=== PATIENT | male | born 1990 | race African-American/Black ===

== ENCOUNTER 2020-01-31 00:31 | Emergency (ER) | payer BC ==
[~2020-01-31] VITALS: Ht 185.4 cm; Wt 188.2 kg
[2020-01-31] MEDS ORDERED: IBUPROFEN 600 MG TAB PO STA (00:34)
[2020-01-31] MEDS ORDERED: IBUPROFEN 600 MG TAB ONE (00:42)
--- NOTE | 2020-01-31 00:43 | Emergency Department Note ---
History of Present Illnes History of Present Illness Chief Complaint: Extremity Trauma/Pain History of Present Illness This is a 29 year old male presents with left wrist pain that started while lifting a propane tank onto a forklift. states felt a pop in left wrist and has had pain since. . Historian: Patient Arrival Mode: Car Onset (how long ago): hour(s) (1) Location: left wrist Quality: pain Radiation: Reports non-radiation Severity: moderate Onset quality: sudden Duration (how long): hour(s) (1) Timing of current episode: constant Progression: unchanged Chronicity: new Context: Reports trauma/injury (as above) Exacerbating factors: movement Associated symptoms: Reports denies other symptoms Treatments prior to arrival: none Past Medical/Family History Physician Review I have reviewed the patient's past medical and family history. Any updates have been documented here. Past Medical History Recent Fever: No Clinical Suspicion of Infectio: No New/Unexplained Change in Ment: No Past Medical History: Hypertension, Diabetes Past Surgical History: None Social History Smoking Cessation: Never Smoker Alcohol Use: Occasional Any Illegal Drug Use: No Family History Family history of heart diseas: No Other family history htn,dm Review of Systems Review of Systems Constitutional: Reports no symptoms EENTM: Reports no symptoms Cardiovascular: Reports no symptoms Respiratory: Reports no symptoms Gastrointestinal: Reports no symptoms Genitourinary: Reports no symptoms Musculoskeletal: Reports as per HPI Integumentary: Reports no symptoms Neurological: Reports no symptoms Psychological: Reports no symptoms Endocrine: Reports no symptoms Hematological/Lymphatic: Reports no symptoms Physical Exam Related Data Allergies: Coded Allergies: No Known Allergies (Unverified , 01/31/20) Triage Vital Signs Vital Signs Date Time Temp Pulse Resp B/P (MAP) Pulse Ox O2 Delivery O2 Flow Rate FiO2 01/31/20 00:34 97.6 107 20 196/112 97 Room Air Vital signs reviewed: Yes Physical Exam CONSTITUTIONAL Constitutional: Present well-developed, Present well-nourished, Present distressed (mild) HENT HENT: Present normocephalic, Present atraumatic, Present oropharynx clear/moist, Present nose normal HENT L/R: Present left ext ear normal, Present right ext ear normal EYES Eyes: Reports PERRL, Reports conjunctivae normal NECK Neck: Present ROM normal PULMONARY Pulmonary: Present effort normal, Present breath sounds normal CARDIOVASCULAR Cardiovascular: Present regular rhythm, Present heart sounds normal, Present capillary refill normal, Present normal rate GASTROINTESTINAL Abdominal: Present soft, Present nontender, Present bowel sounds normal GENITOURINARY Genitourinary: Present exam deferred SKIN Skin: Present warm, Present dry MUSCULOSKELETAL pain in left wrist in located in anatomical snuff box with tenderness to palpation, pain with rom and pain with flexion of thumb against resistance tendons intact, pulses intact. NEUROLOGICAL Neurological: Present alert, Present oriented x 3, Present no gross motor or sensory deficits PSYCHOLOGICAL Psychological: Present mood/affect normal, Present judgement normal Results Imaging Imaging results reviewed: Yes Impressions X-ray left wrist 3 views HISTORY: Pain. [place] pop while lifting. Snuff box tenderness. COMPARISON: None available. FINDINGS: Bones: No acute displaced fracture. Osseous alignment is within normal limits. Joints: The joint spaces are well-maintained. Soft tissues: The soft tissues appear unremarkable. IMPRESSION: No acute fracture identified. Given history of snuff box tenderness, consider immobilization and repeat x-rays in 7-10 days to reassess. Signed by: Tato Gandhi MD on 01/31/2020 1:29 AM Assessment & Plan Medical Decision Making MDM left wrist pain, also pt's blood pressure elevated clonidine 0.1 mg po ordered motrin 600 mg po ordered xray left wrist ordered to eval for fracture. even though xray does not reveal any fractures, due to pain in anatomical snuff box pt placed in velcro thumb spica pt informed to follow up with workers comp physician in the morning Assessment & Plan Final Impression: (1) Left wrist sprain (2) HTN (hypertension) Depart Disposition: HOME, SELF-CARE Last Vital Signs Date Time Temp Pulse Resp B/P (MAP) Pulse Ox O2 Delivery O2 Flow Rate FiO2 01/31/20 00:34 97.6 107 20 196/112 97 Room Air Medications in the ED Ibuprofen 600 mg ONCE STAT PO Last administered on 01/31/20at 00:37; Admin Dose 600 MG; Start 01/31/20 at 00:34; Stop 01/31/20 at 00:35; Status UNV Ibuprofen 600 mg STK-MED ONCE .ROUTE ; Start 01/31/20 at 00:42; Stop 01/31/20 at 00:35; Status ZAYDA DONOVAN MD Jan 31, 2020 00:43
--- NOTE | 2020-01-31 00:57 | NUR ---
RADIOLOGY AT BEDSIDE FOR XRAY.
[2020-01-31] MEDS ORDERED: CLONIDINE HCL 0.1 MG TAB PO ONE (01:15)
--- OUTSIDE RECORDS SUMMARY | 2020-01-31 01:18 | XMS REPORT | Clinical Summary ---
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 Last Filed Vital Signs Not on file Plan of Treatment Health Maintenance Due Date Last Done Comments INFLUENZA VACCINE 01/25/2020 Implants Device Identifier Shelf Expiration Date Model / Serial / L ot Implanted Type Area Manufactur er 09/23/2018 [id number] / / [id number] Particle Soft-Tissue Grft Surgical N/A: N/A [employer] Micronized For Impntn Recon 1000mg Implants; - [id number] Expanders; Implanted: 01/06/2017 at [facility] (Quantity not on file) Surgical Wires 10/23/2018 [id number] / / [id number] Particle Soft-Tissue Grft Surgical N/A: N/A [employer] Micronized For Impntn Recon 1000mg Implants; - [id number] Expanders; Implanted: 01/06/2017 at [facility] (Quantity not on file) Surgical Wires 10/23/2018 [id number] / / [id number] Matrix Matristem 7x10cm Burn Strl - Surgical N/A: N/A [employer] [id number] Implants; Implanted: 01/06/2017 at [facility] (Quantity not on file) Extenders; Surgical Wires 04/25/2018 [id number] / / [id number] Matrix Matristem [id number] Burn Strl Surgical N/A: N/A [employer] - [id number] Implants; Implanted: 01/06/2017 at [facility] (Quantity not on file) Extenders; Surgical Wires Results Not on fileafter 01/30/2019 Advance Directives For more information, please contact: [phone] Patient Arabic Translator Explanation Type Date Recorded Advance Directives, 07/05/2017 7:24 PM Living Will and Medical Power of Lye Treater Date Inactivated Comments Code Status Date Activated 01/07/2017 7:08 PM Full Code 01/04/2017 10:52 AM Code Status decision reached by: Patient
--- OUTSIDE RECORDS SUMMARY | 2020-01-31 01:19 | XMS REPORT | Summary of Care ---
Author Author [facility] Organization [facility] Address Unknown Phone Unavailable Encounter LENI Britt(FIN) [id number] Date(s): 01/21/19 - 01/21/19 [facility] [address] [place], [place] [address]- [phone] Encounter Diagnosis Candidiasis of penis (Discharge Diagnosis) - 01/21/19 Discharge Disposition: Home or Self Care Attending Physician: Hanny Valerio MD Vital Signs 1 2 3 Most recent to oldest [Reference Range]: 185.42 cm (01/21/19 12:48 AM) Height 98.4 DegF (01/21/19 12:48 AM) Temperature Oral [96.4-99.1 DegF] 178/110 mmHg *HI* (01/21/19 2:02 AM) 183/112 mmHg *HI* (01/21/19 1:40 AM) 179/110 mmHg *HI* (01/21/19 1:15 AM) Blood Pressure [90-140/60-90 mmHg] 18 BRMIN (01/21/19 2:02 AM) 18 BRMIN (01/21/19 12:48 AM) Respiratory Rate [14-20 BRMIN] 75 bpm (01/21/19 2:02 AM) 77 bpm (01/21/19 12:48 AM) Peripheral Pulse Rate [60-100 bpm] 195.568 kg (01/21/19 12:48 AM) Weight 56.88 m2 (01/21/19 12:48 AM) Body Mass Index Problem List No data available for this section Allergies, Adverse Reactions, Alerts No Known Allergies Medications clotrimazole topical 1% cream 1 appl, TOP, BID, apply to affected area for 2 to 4 weeks, X 7 day, # 15 gm, 0 R efill(s) Start Date: 01/21/19 Stop Date: 01/28/19 Status: Ordered Diflucan 200 mg, Route: PO, ONCE, Dosing Weight 195.568, kg, Start date: 01/21/19 2:03:00 CDT, Stop date: 01/21/19 2:03:00 CDT, ABX Indication: Genital Tract Infection Start Date: 01/21/19 Stop Date: 01/21/19 Status: Completed Diflucan 100 mg oral tablet 100 mg = 1 tab, PO, Daily, X 7 day, # 7 tab, 0 Refill(s) Start Date: 01/21/19 Stop Date: 01/28/19 Status: Ordered Results Most recent to 1 2 oldest [Reference Range]: UA Bacteria [None Occasional /HPF Seen /HPF] (01/21/19 1:51 AM) UA Bili [Negative] Negative *NA* (01/21/19 1:51 AM) UA Blood [Negative] Negative (01/21/19 1:51 AM) UA Color STRAW *NA* (01/21/19 1:51 AM) UA Glucose [Negative >=1000 mg/dL mg/dL] *ABN* (01/21/19 1:51 AM) UA Ketones Negative [Negative] *NA* (01/21/19 1:51 AM) UA Leuk Est Negative [Negative] (01/21/19 1:51 AM) UA Nitrite Negative [Negative] (01/21/19 1:51 AM) UA pH [5.0-8.0] 6.0 (01/21/19 1:51 AM) UA Protein Negative [Negative] (01/21/19 1:51 AM) UA RBC [0-2 /HPF] 0-2 /HPF (01/21/19 1:51 AM) UA Spec Grav 1.010 [<=1.030] (01/21/19 1:51 AM) UA Sq Epi [Few /LPF] Rare /LPF (01/21/19 1:51 AM) UA Turbidity [Clear] Clear (01/21/19 1:51 AM) UA Urobilinogen 0.2 EU/dL [0.1-1.0 EU/dL] (01/21/19 1:51 AM) UA WBC [None Seen 0-2 /HPF /HPF] (01/21/19 1:51 AM) C trachomatis by Amp Negative Det (APTIMA) *NA* [Negative] (01/21/19 1:51 AM) N gonorrhea by Amp Negative Det (APTIMA) *NA* [Negative] (01/21/19 1:51 AM) Source APTIMA Urine Urine *NA* *NA* (01/21/19 1:51 AM) (01/21/19 1:51 AM) Immunizations No data available for this section Procedures No data available for this section Social History Social History Type Response Smoking Status Never smoker; Exposure to T obacco Smoke None; Cigarette Smoking Last 365 Days No; Reg Smoking Cessation Counseli ng No entered on: 01/21/19 Assessment and Plan No data available for this section
--- OUTSIDE RECORDS SUMMARY | 2020-01-31 01:19 | XMS REPORT | Summary of Care ---
Author Author [facility] Organization [facility] Address Unknown Phone Unavailable Encounter HQ Balwinder(JOVANNA) [id number] Date(s): 08/29/19 - 08/29/19 [facility] [address], [place], [place] [address]- [phone] Encounter Diagnosis Acute conjunctivitis, right eye (Discharge Diagnosis) - 08/29/19 Acute conjunctivitis, right eye (Discharge Diagnosis) - 08/29/19 Discharge Disposition: Home or Self Care Attending Physician: Rosendo Diaz MD Vital Signs Most recent to 1 2 oldest [Reference Range]: Height 185.42 cm (08/29/19 1:16 PM) Temperature Oral 97.3 DegF 97.6 DegF [96.4-99.1 DegF] (08/29/19 1:48 PM) (08/29/19 1:16 PM) Blood Pressure 188/104 mmHg 189/114 mmHg [90-140/60-90 mmHg] *HI* *HI* (08/29/19 1:48 PM) (08/29/19 1:16 PM) Respiratory Rate 18 BRMIN 18 BRMIN [14-20 BRMIN] (08/29/19 1:48 PM) (08/29/19 1:16 PM) Peripheral Pulse 94 bpm 83 bpm Rate [60-100 bpm] (08/29/19 1:48 PM) (08/29/19 1:16 PM) Weight 193.273 kg (08/29/19 1:16 PM) Body Mass Index 56.22 m2 (08/29/19 1:16 PM) Problem List No data available for this section Allergies, Adverse Reactions, Alerts No Known Allergies Medications erythromycin ophthalmic 0.5% ointment 1 appl, RIGHT EYE, QID, X 7 day, # 3 gm, 0 Refill(s) Start Date: 08/29/19 Stop Date: 09/05/19 Status: Ordered fluorescein ophthalmic 1 mg test 1 strip, Route: OPTH, ONCE, Priority: STAT, Start date: 08/29/19 13:25:00 BICYCLE INSPECTOR, S top date: 08/29/19 13:25:00 BICYCLE INSPECTOR Start Date: 08/29/19 Stop Date: 08/29/19 Status: Completed proparacaine ophthalmic 0.5% solution 1 drp, Route: BOTH EYES, ONCE, Drug form: SOLN, Priority: STAT, Start date: 11/12 13:25:00 BICYCLE INSPECTOR, Stop date: 08/29/19 13:25:00 BICYCLE INSPECTOR Start Date: 08/29/19 Stop Date: 08/29/19 Status: Completed Results No data available for this section Immunizations No data available for this section Procedures No data available for this section Social History Social History Type Response Smoking Status Never smoker; Exposure to T obacco Smoke None; Cigarette Smoking Last 365 Days No; Reg Smoking Cessation Counseli ng No entered on: 08/29/19 Assessment and Plan No data available for this section
--- OUTSIDE RECORDS SUMMARY | 2020-01-31 01:19 | XMS REPORT | Continuity of Care Document ---
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 Name Role Phone [employer] Information [employer] Unavailable Un available Problems Problem Status Onset Date Classification Date Reported Comments Source STOMACH PAIN Active 11/25/2019 [facility] PANCREATITIS Active 11/25/2019 [facility] Unspecified acute conjunctivitis, right eye 08/29/2019 08/31/2019 [facility] EYE PAIN Active 08/29/2019 [facility] Candidal balanitis 08/16/2019 08/19/2019 [facility] Localized edema 08/16/2019 08/19/2019 [facility] GENITAL AREA OTHER* Active 08/16/2019 [facility] PENIS RASH Active 01/20/2019 [facility] BILIARY ACUTE PANCREATITIS WITHOUT NECRO Active [facility] BILIARY ACUTE PANCREATITIS WITHOUT NECROSIS OR INFECT Active [facility] st Medications Medication Details Route Status Patient Instructions Ordering Provider Order Date Source sugammadex (ANES) Route: IV, D rug form: SOLN, ONCE, Stop date: 11/28/19 13:54:00 CDT Inactive 11/28/2019 [facility] ondansetron (ANES) Route: IV, Drug form: INJ, ONCE, Stop date: 11/28/19 13:42:00 CDT Inactive 11/28/2019 [facility] ePHEDrine (ANES) Route: IV, Dr buenrostro form: INJ, ONCE, Stop date: 11/28/19 13:26:00 CDT Inactive 11/28/2019 [facility] glycopyrrolate (ANES) Route: I V, Drug form: INJ, ONCE, Stop date: 11/28/19 13:26:00 CDT Inactive 11/28/2019 [facility] Acetaminophen 300 MG / Codeine Phosphate 30 MG Oral Tablet 1 - 2 tab, PO, Q6H, PRN Pain, X 7 day, # 40 tab, 0 Refill(s) Active 11/28/2019 [facility] lidocaine (ANES) Route: IV, Dr buenrostro form: INJ, ONCE, Stop date: 11/28/19 13:21:00 CDT Inactive 11/28/2019 [facility] fentaNYL (ANES) Route: IV, Mayo g form: INJ, ONCE, Stop date: 11/28/19 13:21:00 CDT Inactive 11/28/2019 [facility] propofol (ANES) Route: IV, Mayo g form: INJ, ONCE, Stop date: 11/28/19 13:21:00 CDT Inactive 11/28/2019 [facility] rocuronium (ANES) Route: IV, D rug form: INJ, ONCE, Stop date: 11/28/19 13:21:00 CDT Inactive 11/28/2019 [facility] dexamethasone (ANES) Route: IV , Drug form: INJ, ONCE, Stop date: 11/28/19 13:21:00 CDT Inactive 11/28/2019 [facility] cefOXitin (ANES) Route: IV, Dr ug form: INJ, ONCE, Stop date: 11/28/19 13:21:00 CDT Inactive 11/28/2019 [facility] midazolam (ANES) Route: IV, Dr ug form: SOLN, ONCE, Stop date: 11/28/19 13:01:00 CDT Inactive 11/28/2019 [facility] Lactated Ringers Injection IV (ANES) 1000 mL Route: IV, Total Volume: 1,000, Start date: 11/28/19 12:26:00 CDT, Stop date: 11/28/19 13:26:00 CDT Inactive 11/28/2019 [facility] Calcium Chloride 0.0014 MEQ/ML / Potassi um Chloride 0.004 MEQ/ML / Sodium Chloride 0.103 MEQ/ML / Sodium Lactate 0.028 MEQ/ML Injectable Solution 1,000 mL, Rate: 75 ml/hr, Infuse over: 1 3.3 hr, Route: IV, Dosing Weight 191.392 kg, Total Volume: 1,000, Start date: 11/28/19 12:08:00 CDT, Duration: 12 hr, Stop date: 11/29/19 0:07:00 CDT, 3.19, m2, 0 No Longer Active 11/28/2019 [facility] Hydralazine Notes: (Same as: A presoline) Push over 5 minutes Inactive 11/28/2019 [facility] Labetalol Notes: (Same as: Holger modyne Trandate) Push over 2 minutes Give bolus over 2-3 minutes. Inactive 11/28/2019 [facility] Acetaminophen Notes: Max aceta minophen 4000 mg/day (4 gm/day). (Same as: Tylenol Extra Strength) Inactive 11/28/2019 [facility] Oxycodone Hydrochloride 5 MG Oral Tablet Notes: (Same as: Roxicodone) Inactive 11/28/2019 [facility] Morphine Notes: (Same as:MORPh ine Sulfate) Inactive 11/28/2019 [facility] Hydromorphone Notes: Same as: Dilaudid Inactive 11/28/2019 [facility] Flumazenil Notes: (Same as: Ro mazicon) Inactive 11/28/2019 [facility] Naloxone Notes: Same as Narcan Inactive 11/28/2019 [facility] Ondansetron Notes: (Same as: Carmelo constantino) MEDICATION WASTE Product Size: 4 mg Product Wasted: ___ mg Inactive 11/28/2019 [facility] Cefoxitin Notes: (Same As: Mef oxin) No Longer Active 11/27/2019 [facility] phenol Notes: Chloraseptic Spr ay (Same as: Chloraseptic, Sore Throat [place]) WASTE: F/P - Black; E - Municipal Trash Bin No Longer Active 11/27/2019 [facility] Hydrochlorothiazide Notes: (Sa me as: Hydrodiuril). Give with food. No Longer Active 11/26/2019 [facility] lisinopril 40 mg oral tablet 4 0 mg = 1 tab, PO, Daily, # 30 tab, 0 Refill(s) Active 11/26/2019 [facility] Hydrochlorothiazide 12.5 mg, P O, Daily, 0 Refill(s) Active 11/26/2019 [facility] 1 MG Dose 1.5 ML semaglutide 1.34 MG/ML Pen Injector [Ozempic] 2 mg, SUB-Q, qWeek, 0 Refill(s) Active 11/26/2019 [facility] Glipizide 10 MG Oral Tablet 10 mg = 1 tab, PO, Before Breakfast, # 30 tab, 0 Refill(s) Active 11/26/2019 [facility] metFORMIN 500 mg oral tablet, extended release 500 mg = 1 tab, PO, Daily, with evening meal, # 30 tab, 1 Refill(s) Active 11/26/2019 [facility] Lisinopril Notes: (Same as: Pr inivil, Zestril) No Longer Active 11/26/2019 [facility] Protonix Notes: For IV push re constitute with 10 ml 0.9% sodium chloride and push over 2 minutes. (Same as: Protonix) No Longer Active 11/26/2019 [facility] Enoxaparin Notes: (Same as: Lo venox) No Longer Active 11/26/2019 [facility] Dextrose 50% Syringe (D50W) 12 .5 gm, 25 mL, Route: IVP, Drug Form: INJ, Dosing Weight 191.392, kg, PRN, PRN Blood Glucose Results, Start date: 11/26/19 7:53:00 CDT, Duration: 30 day, Stop date: 12/26/19 7:52:00 CDT, 0 No Longer Active 11/26/2019 [facility] Glucagon 1 mg, Route: IM, Drug form: PDR/INJ, PRN, Dosing Weight 191.392, kg, PRN Blood Glucose Results, Start date: 11/26/19 7:53:00 CDT, Duration: 30 day, Stop date: 12/26/19 7:52:00 CDT, 0 No Longer Active 11/26/2019 [facility] Insulin Lispro Notes: (Same as : Humalog) Roll in palms of hands gently; Do not shake vigorously. WASTE: F/P - Black; E - Municipal Trash Bin Stable for 28 days at room temperature. Expires in days from Date No Longer Active 11/26/2019 [facility] Zosyn Notes: (Same as: Zosyn) Dosing based on Piperacillin component MEDICATION WASTE Product Size: 3375 mg Product Wasted: ___ mg No Longer Active 11/26/2019 [facility] Lactated Ringers IV 1,000 mL 1 ,000 mL, Rate: 150 ml/hr, Infuse over: 6.7 hr, Route: IV, Dosing Weight 191.182 kg, Total Volume: 1,000, Priority: STAT, Start date: 11/26/19 3:51:00 CDT, Duration: 30 day, Stop date: 12/26/19 3:50:00 CDT, 3.19, m2, 0 No Longer Active 11/26/2019 [facility] Dextrose 50% Syringe (D50W) 12 .5 gm, 25 mL, Route: IVP, Drug Form: INJ, Dosing Weight 191.182, kg, PRN, PRN Blood Glucose Results, Start date: 11/26/19 3:47:00 CDT, Duration: 30 day, Stop date: 12/26/19 3:46:00 CDT, 0 Inactive 11/26/2019 [facility] Glucagon 1 mg, Route: IM, Drug form: PDR/INJ, PRN, Dosing Weight 191.182, kg, PRN Blood Glucose Results, Start date: 11/26/19 3:47:00 CDT, Duration: 30 day, Stop date: 12/26/19 3:46:00 CDT, 0 Inactive 11/26/2019 [facility] Morphine Notes: (Same as:MORPh ine Sulfate) No Longer Active 11/26/2019 [facility] Zofran Notes: (Same as: Zofran ) MEDICATION WASTE Product Size: 4 mg Product Wasted: ___ mg No Longer Active 11/26/2019 [facility] tramadol hydrochloride 50 MG Oral Tablet Notes: Not to exceed 400mg/day. (Same As: Ultram) No Longer Active 11/26/2019 [facility] Hydralazine Hydrochloride 25 MG Oral Tablet Notes: (Same as: Apresoline) May interfere w/enteral feedings Take With Food. No Longer Active 11/26/2019 [facility] Docusate Sodium 100 MG Oral Capsule [Colace] Notes: (Same as: Colace) (Do Not Crush) No Longer Active 11/26/2019 [facility] Acetaminophen Notes: Do not ex ceed 4 gm/day. (Same as: Tylenol) No Longer Active 11/26/2019 [facility] Potassium Chloride Notes: ([facility] e as: K-Dur 20) "Do Not Crush" Give with food and full glass of water For patients unable to swallow tablet, dissolve in one half glass of water. Allow about 2 minutes for the tab lets to disintegrate. Stir before giving to prepare slurry and administer. Please exclude Patients with feeding tube less than 14 [place] (Dobhoff, J-tube etc) and pediatric and patients. No Longer Active 11/26/2019 [facility] potassium phosphate-sodium phosphate 250 mg-280 mg-160 mg oral powder for reconstitution Notes: (Same as: Phos-NaK) Each 1.5 gm pkt has 250mg phosphorous. Mix w/2.5oz water and stir. No Longer Active 11/26/2019 [facility] potassium phosphate Notes: (Sa me as: K Phosphate.) Do not infuse phosphorous concurrently in the same line as TPN or IVF that contains calcium. For double lumen central lines, phosphorous may be infused in a separate lumen from TPN. 1 mMol phoshate has 1.47 mEq potassium Infuse over 4 hours No Longer Active 11/26/2019 [facility] sodium phosphate Notes: Infuse over 4 hour. Do not infuse phosphorous concurrently in the same line as TPN or IVF that contains calcium. For double lumen central lines, phosphorous may be infused in a separate lumen from TPN. No Longer Active 11/26/2019 [facility] Magnesium Sulfate Notes: WASTE : F/P - Sink; E - Municipal Trash Bin No Longer Active 11/26/2019 [facility] Magnesium Oxide Notes: (Same a s: Mag-Ox 400) Magnesium oxide [id number] elemental magnesium Dose=____mg magnesium oxide (___mg elemental magnesium) No Longer Active 11/26/2019 [facility] Calcium Gluconate Notes: Conta ins: calcium gluconate 20mg/mL NaCl 0.67% 100mL WASTE: F/P - Sink; E - Municipal Trash Bin No Longer Active 11/26/2019 [facility] Acetaminophen 325 MG / Hydrocodone Dianna trate 10 MG Oral Tablet [Hanna 10/325] Notes: Do not exceed 4gm/day of acetamin ophen. (Same as: Hanna 325/10) No Longer Active 11/26/2019 [facility] Zofran 4 mg, Route: IVP, Drug form: INJ, ONCE, Dosing Weight 191.182, kg, Priority: STAT, Start date: 11/26/19 1:57:00 CDT, Stop date: 11/26/19 1:57:00 CDT Inactive 11/26/2019 [facility] Morphine 4 mg, Route: IVP, ONC E, Dosing Weight 191.182, kg, Priority: STAT, Start date: 11/26/19 1:56:00 CDT, Stop date: 11/26/19 1:56:00 CDT Inactive 11/26/2019 [facility] Lidocaine Viscous 2% mucous membrane solution 10 mL, Route: PO, ONCE, Start date: 11/26/19 1:56:00 CDT, Stop date: 11/26/19 1:56:00 CDT Inactive 11/26/2019 [facility] Aluminum Hydroxide / Magnesium Hydroxide / Simethicone 30 mL, Route: PO, Dosing Weight 191.182, kg, ONCE, STAT, Start date: 11/26/19 1:56:00 CDT, Stop date: 11/26/19 1:56:00 CDT Inactive 11/26/2019 [facility] Saline Flush 0.9% Notes: (Same as: BD Posiflush) No Longer Active 11/26/2019 [facility] erythromycin ophthalmic 0.5% ointment 1 appl, RIGHT EYE, QID, X 7 day, # 3 gm, 0 Refill(s) Active 08/29/2019 [facility] fluorescein ophthalmic 1 mg test 1 strip, Route: OPTH, ONCE, Priority: STAT, Start date: 08/29/19 13:25:00 PROJECT SCHEDULER, Stop date: 08/29/19 13:25:00 PROJECT SCHEDULER Inactive 08/29/2019 [facility] Proparacaine hydrochloride 5 MG/ML Ophthalmic Solution 1 drp, Route: BOTH EYES, ONCE, Drug form: SOLN, Priority: STAT, Start date: 08/29/19 13:25:00 PROJECT SCHEDULER, Stop date: 08/29/19 13:25:00 PROJECT SCHEDULER Inactive 08/29/2019 [facility] Fluconazole 150 MG Oral Tablet [Diflucan] 150 mg = 1 tab, PO, ONCE, # 1 tab, 0 Refill(s) Active 08/17/2019 [facility] Clotrimazole 10 MG/ML Topical Cream 1 appl, TOP, BID, PRN Affected Area(s), apply to penile fungal infection, X 14 day, # 30 gm, 0 Refill(s) Active 08/17/2019 [facility] Diflucan 200 mg, Route: PO, ON CE, Dosing Weight 195.568, kg, Start date: 01/21/19 2:03:00 CDT, Stop date: 01/21/19 2:03:00 CDT, ABX Indication: Genital Tract Infection Inactive 01/21/2019 [facility] Fluconazole 100 MG Oral Tablet [Diflucan] 100 mg = 1 tab, PO, Daily, X 7 day, # 7 tab, 0 Refill(s) Active 01/21/2019 [facility] Clotrimazole 10 MG/ML Topical Cream 1 appl, TOP, BID, apply to affected area for 2 to 4 weeks, X 7 day, # 15 gm, 0 Refill(s) Active 01/21/2019 [facility] Allergies, Adverse Reactions, Alerts No Known Medication Allergies Immunizations No Data Provided for This Section Results Order Name Results Value Reference Range Date Interpretation Comments Source CHEM PANEL Glucose Lvl 273 70 - 99 11/29/2019 [facility] CHEM PANEL BUN 17 7 - 22 11/29/2019 [facility] CHEM PANEL Creatinine Lvl 1.19 0.50 - 1.40 11/29/2019 [facility] CHEM PANEL Sodium Lvl 134 135 - 145 11/29/2019 [facility] CHEM PANEL Potassium Lvl 3.9 3.5 - 5.1 11/29/2019 [facility] CHEM PANEL Chloride Lvl 100 95 - 109 11/29/2019 [facility] CHEM PANEL CO2 27 24 - 32 11/29/2019 [facility] CHEM PANEL Calcium Lvl 9.4 8.5 - 10.5 11/29/2019 [facility] CHEM PANEL Total Protein 8.3 6.4 - 8.4 11/29/2019 [facility] CHEM PANEL Albumin Lvl 3.5 3.5 - 5.0 11/29/2019 [facility] CHEM PANEL ALT 46 0 - 65 11/29/2019 [facility] CHEM PANEL AST 25 0 - 37 11/29/2019 [facility] CHEM PANEL Alk Phos 79 39 - 136 11/29/2019 [facility] CHEM PANEL Bili Total 0.5 0.2 - 1.3 11/29/2019 [facility] CHEM PANEL AGAP 10.9 10.0 - 20.0 11/29/2019 [facility] CHEM PANEL B/C Ratio 14 6 - 25 11/29/2019 [facility] CHEM PANEL Globulin 4.8 2.7 - 4.2 11/29/2019 [facility] CHEM PANEL A/G Ratio 0.7 0.7 - 1.6 11/29/2019 [facility] CHEM PANEL eGFR 95 11/29/2019 Result Comment: The eGFR is calculated using the CKD-EPI formula. In most young, healthy individuals the eGFR will be >90 mL/min/1.73m2. The eGFR declines with age. An eGFR of 60-89 may be normal in some populations, particularly the elderly, for whom the CKD-EPI formula has not been extensively validated. Use of the eGFR is not recommended in the following populations:

Individuals with unstable creatinine concentrations, including patients and those with serious co-morbid conditions.

Patients with extremes in muscle mass or diet.

The data above are obtained from the National Kidney Disease Education Program (NKDEP) which additionally recommends that when the eGFR is used in patients with extremes of body mass index for purposes of drug dosing, the eGFR should be multiplied by the estimated BMI. [facility] HEMATOLOGY Segs 81.4 45.0 - 75.0 11/29/2019 [facility] Lymphocytes 11.8 20.0 - 40.0 11/29/2019 [facility] Monocytes 6.4 2.0 - 12.0 11/29/2019 [facility] HEMATOLOGY Eosinophils 0.1 0.0 - 4.0 11/29/2019 [facility] Basophils 0.3 0.0 - 1.0 11/29/2019 [facility] Neutrophils # 8.1 1.5 - 8.1 11/29/2019 [facility] Lymphocytes # 1.2 1.0 - 5.5 11/29/2019 [facility] Monocytes # 0.6 0.0 - 0.8 11/29/2019 [facility] Microcyte 1+ *ABN* (11/29/19 4:16 AM) None Seen 11/29/2019 [facility] WBC 10.0 3.7 - 10.4 11/29/2019 [facility] RBC 5.32 4.70 - 6.10 11/29/2019 [facility] Hgb 13.6 14.0 - 18.0 11/29/2019 [facility] Hct 41.3 42.0 - 54.0 11/29/2019 [facility] MCV 77.7 80.0 - 94.0 11/29/2019 [facility] MCH 25.6 27.0 - 31.0 11/29/2019 [facility] MCHC 33.0 32.0 - 36.0 11/29/2019 [facility] RDW 14.6 11.5 - 14.5 11/29/2019 [facility] Platelet 190 133 - 450 11/29/2019 [facility] MPV 8.9 7.4 - 10.4 11/29/2019 [facility] CHEM PANEL Lipase Lvl 2642 73 - 393 11/28/2019 [facility] CHEM PANEL Phosphorus 4.1 2.5 - 4.5 11/27/2019 [facility] CHEM PANEL Glucose Lvl 212 70 - 99 11/27/2019 [facility] CHEM PANEL BUN 11 7 - 22 11/27/2019 [facility] CHEM PANEL Creatinine Lvl 1.07 0.50 - 1.40 11/27/2019 [facility] CHEM PANEL Sodium Lvl 136 135 - 145 11/27/2019 [facility] CHEM PANEL Potassium Lvl 4.0 3.5 - 5.1 11/27/2019 [facility] CHEM PANEL Chloride Lvl 101 95 - 109 11/27/2019 [facility] CHEM PANEL CO2 31 24 - 32 11/27/2019 [facility] CHEM PANEL Calcium Lvl 8.8 8.5 - 10.5 11/27/2019 [facility] CHEM PANEL Total Protein 7.4 6.4 - 8.4 11/27/2019 [facility] CHEM PANEL Albumin Lvl 3.1 3.5 - 5.0 11/27/2019 [facility] CHEM PANEL ALT 31 0 - 65 11/27/2019 [facility] CHEM PANEL AST 15 0 - 37 11/27/2019 [facility] CHEM PANEL Alk Phos 68 39 - 136 11/27/2019 [facility] CHEM PANEL Bili Total 0.7 0.2 - 1.3 11/27/2019 [facility] CHEM PANEL AGAP 8.0 10.0 - 20.0 11/27/2019 [facility] CHEM PANEL B/C Ratio 10 6 - 25 11/27/2019 [facility] CHEM PANEL Globulin 4.3 2.7 - 4.2 11/27/2019 [facility] CHEM PANEL A/G Ratio 0.7 0.7 - 1.6 11/27/2019 [facility] CHEM PANEL eGFR 108 11/27/2019 Result Comment: The eGFR is calculated using the CKD-EPI formula. In most young, healthy individuals the eGFR will be >90 mL/min/1.73m2. The eGFR declines with age. An eGFR of 60-89 may be normal in some populations, particularly the elderly, for whom the CKD-EPI formula has not been extensively validated. Use of the eGFR is not recommended in the following populations:

Individuals with unstable creatinine concentrations, including patients and those with serious co-morbid conditions.

Patients with extremes in muscle mass or diet.

The data above are obtained from the National Kidney Disease Education Program (NKDEP) which additionally recommends that when the eGFR is used in patients with extremes of body mass index for purposes of drug dosing, the eGFR should be multiplied by the estimated BMI. [facility] CHEM PANEL Magnesium Lvl 2.1 1.8 - 2.4 11/27/2019 [facility] CHEM PANEL Lipase Lvl 3766 73 - 393 11/27/2019 [facility] WBC 7.6 3.7 - 10.4 11/27/2019 [facility] RBC 5.04 4.70 - 6.10 11/27/2019 [facility] Hgb 13.1 14.0 - 18.0 11/27/2019 [facility] Hct 39.6 42.0 - 54.0 11/27/2019 [facility] MCV 78.7 80.0 - 94.0 11/27/2019 [facility] MCH 25.9 27.0 - 31.0 11/27/2019 [facility] MCHC 32.9 32.0 - 36.0 11/27/2019 [facility] RDW 14.5 11.5 - 14.5 11/27/2019 [facility] Platelet 142 133 - 450 11/27/2019 [facility] MPV 9.0 7.4 - 10.4 11/27/2019 [facility] Segs 71.5 45.0 - 75.0 11/27/2019 [facility] Lymphocytes 20.7 20.0 - 40.0 11/27/2019 [facility] Monocytes 6.1 2.0 - 12.0 11/27/2019 [facility] HEMATOLOGY Eosinophils 1.5 0.0 - 4.0 11/27/2019 [facility] HEMATOLOGY Basophils 0.2 0.0 - 1.0 11/27/2019 [facility] Neutrophils # 5.4 1.5 - 8.1 11/27/2019 [facility] Lymphocytes # 1.6 1.0 - 5.5 11/27/2019 [facility] Monocytes # 0.5 0.0 - 0.8 11/27/2019 [facility] Eosinophils # 0.1 0.0 - 0.5 11/27/2019 [facility] Microcyte 1+ *ABN* (11/27/19 3:07 AM) None Seen 11/27/2019 [facility] LIPIDS Trig 214 <=149 mg/dL 11/27/2019 [facility] LIPIDS Chol 142 <=199 mg/dL 11/27/2019 [facility] LIPIDS HDL 32 >=61 mg/dL 11/27/2019 [facility] LIPIDS CHD Risk 4.44 4.00 - 7.30 11/27/2019 [facility] LIPIDS LDL (Calculated) 67 <=99 mg/dL 11/27/2019 [facility] LIPIDS VLDL 43 11/27/2019 [facility] SPECIAL CHEMISTRY Hgb A1C 10.0 <=5.6 % 11/27/2019 [facility] CARDIAC ENZYMES Troponin-I <0.02 0.00 - 0.40 11/26/2019 [facility] CHEM PANEL Glucose Lvl 299 70 - 99 11/26/2019 [facility] CHEM PANEL BUN 11 7 - 22 11/26/2019 [facility] CHEM PANEL Creatinine Lvl 1.09 0.50 - 1.40 11/26/2019 [facility] CHEM PANEL Sodium Lvl 135 135 - 145 11/26/2019 [facility] CHEM PANEL Potassium Lvl 4.3 3.5 - 5.1 11/26/2019 [facility] CHEM PANEL Chloride Lvl 102 95 - 109 11/26/2019 [facility] CHEM PANEL CO2 30 24 - 32 11/26/2019 [facility] CHEM PANEL Calcium Lvl 9.3 8.5 - 10.5 11/26/2019 [facility] CHEM PANEL Total Protein 8.3 6.4 - 8.4 11/26/2019 [facility] CHEM PANEL Albumin Lvl 3.6 3.5 - 5.0 11/26/2019 [facility] CHEM PANEL ALT 35 0 - 65 11/26/2019 [facility] CHEM PANEL AST 14 0 - 37 11/26/2019 [facility] CHEM PANEL Alk Phos 99 39 - 136 11/26/2019 [facility] CHEM PANEL Bili Total 0.5 0.2 - 1.3 11/26/2019 [facility] CHEM PANEL AGAP 7.3 10.0 - 20.0 11/26/2019 [facility] CHEM PANEL B/C Ratio 10 6 - 25 11/26/2019 [facility] CHEM PANEL Globulin 4.7 2.7 - 4.2 11/26/2019 [facility] CHEM PANEL A/G Ratio 0.8 0.7 - 1.6 11/26/2019 [facility] CHEM PANEL eGFR 105 11/26/2019 Result Comment: The eGFR is calculated using the CKD-EPI formula. In most young, healthy individuals the eGFR will be >90 mL/min/1.73m2. The eGFR declines with age. An eGFR of 60-89 may be normal in some populations, particularly the elderly, for whom the CKD-EPI formula has not been extensively validated. Use of the eGFR is not recommended in the following populations:

Individuals with unstable creatinine concentrations, including patients and those with serious co-morbid conditions.

Patients with extremes in muscle mass or diet.

The data above are obtained from the National Kidney Disease Education Program (NKDEP) which additionally recommends that when the eGFR is used in patients with extremes of body mass index for purposes of drug dosing, the eGFR should be multiplied by the estimated BMI. [facility] CHEM PANEL Lipase Lvl 59555 73 - 393 11/26/2019 [facility] HEMATOLOGY WBC 8.1 3.7 - 10.4 11/26/2019 [facility] RBC 5.36 4.70 - 6.10 11/26/2019 [facility] Hgb 13.8 14.0 - 18.0 11/26/2019 [facility] Hct 41.8 42.0 - 54.0 11/26/2019 [facility] MCV 78.0 80.0 - 94.0 11/26/2019 [facility] MCH 25.8 27.0 - 31.0 11/26/2019 [facility] MCHC 33.1 32.0 - 36.0 11/26/2019 [facility] HEMATOLOGY RDW 14.4 11.5 - 14.5 11/26/2019 [facility] Platelet 145 133 - 450 11/26/2019 [facility] MPV 8.6 7.4 - 10.4 11/26/2019 [facility] Segs 70.8 45.0 - 75.0 11/26/2019 [facility] Lymphocytes 21.1 20.0 - 40.0 11/26/2019 [facility] Monocytes 6.8 2.0 - 12.0 11/26/2019 [facility] HEMATOLOGY Eosinophils 0.9 0.0 - 4.0 11/26/2019 [facility] HEMATOLOGY Basophils 0.4 0.0 - 1.0 11/26/2019 [facility] HEMATOLOGY Neutrophils # 5.7 1.5 - 8.1 11/26/2019 [facility] HEMATOLOGY Lymphocytes # 1.7 1.0 - 5.5 11/26/2019 [facility] Monocytes # 0.6 0.0 - 0.8 11/26/2019 [facility] HEMATOLOGY Eosinophils # 0.1 0.0 - 0.5 11/26/2019 [facility] HEMATOLOGY Microcyte 1+ *ABN* (11/26/19 1:40 AM) None Seen 11/26/2019 [facility] URINE AND STOOL UA Color Yellow *NA* (08/16/19 11:32 PM) Yellow 08/17/2019 [facility] URINE AND STOOL UA Turbidity Clear (08/16/19 11:32 PM) Clear 08/17/2019 [facility] URINE AND STOOL UA Spec Grav 1.015 <=1.030 08/17/2019 [facility] URINE AND STOOL UA pH 6.0 5.0 - 8.0 08/17/2019 [facility] URINE AND STOOL UA Protein Negative mg/dL Negative mg/dL 08/17/2019 [facility] URINE AND STOOL UA Glucose >=1000 mg/dL Negative mg/dL 08/17/2019 [facility] URINE AND STOOL UA Ketones Negative mg/dL Negative mg/dL 08/17/2019 [facility] URINE AND STOOL UA Bili Negative *NA* (08/16/19 11:32 PM) Negative 08/17/2019 [facility] URINE AND STOOL UA Blood Negative (08/16/19 11:32 PM) Negative 08/17/2019 [facility] URINE AND STOOL UA Urobilinogen 0.2 0.1 - 1.0 08/17/2019 [facility] URINE AND STOOL UA Nitrite Negative (08/16/19 11:32 PM) Negative 08/17/2019 [facility] URINE AND STOOL UA Leuk Est Negative (08/16/19 11:32 PM) Negative 08/17/2019 [facility] URINE AND STOOL UA Sq Epi Rare /LPF Few /LPF 08/17/2019 [facility] URINE AND STOOL UA WBC 3-5 /HPF None Seen /HPF 08/17/2019 [facility] URINE AND STOOL UA RBC 0-2 /HPF 0 - 2 08/17/2019 [facility] URINE AND STOOL UA Bacteria Rare 08/17/2019 [facility] MOLECULAR DIAGNOSTIC Source APTIM[place] Urine *NA* (01/21/19 1:51 AM) 01/21/2019 [facility] MOLECULAR DIAGNOSTIC C trachomatis b y Amp Det (APTIMA) Negative *NA* (01/21/19 1:51 AM) Negative 01/21/2019 [facility] MOLECULAR DIAGNOSTIC N gonorrhea by Amp Det (APTIMA) Negative *NA* (01/21/19 1:51 AM) Negative 01/21/2019 [facility] MOLECULAR DIAGNOSTIC Source [place] Urine *NA* (01/21/19 1:51 AM) 01/21/2019 [facility] URINE AND STOOL UA Glucose >=1000 mg/dL Negative mg/dL 01/21/2019 [facility] URINE AND STOOL UA Ketones Negative *NA* (01/21/19 1:51 AM) Negative 01/21/2019 [facility] URINE AND STOOL UA Bili Negative *NA* (01/21/19 1:51 AM) Negative 01/21/2019 [facility] URINE AND STOOL UA Nitrite Negative (01/21/19 1:51 AM) Negative 01/21/2019 [facility] URINE AND STOOL UA Leuk Est Negative (01/21/19 1:51 AM) Negative 01/21/2019 [facility] URINE AND STOOL UA Blood Negative (01/21/19 1:51 AM) Negative 01/21/2019 [facility] URINE AND STOOL UA Urobilinogen 0.2 0.1 - 1.0 01/21/2019 [facility] URINE AND STOOL UA pH 6.0 5.0 - 8.0 01/21/2019 [facility] URINE AND STOOL UA Protein Negative (01/21/19 1:51 AM) Negative 01/21/2019 [facility] URINE AND STOOL UA Turbidity Clear (01/21/19 1:51 AM) Clear 01/21/2019 [facility] URINE AND STOOL UA Spec Grav 1.010 <=1.030 01/21/2019 [facility] URINE AND STOOL UA Color STRAW 01/21/2019 [facility] URINE AND STOOL UA Sq Epi Rare /LPF Few /LPF 01/21/2019 [facility] URINE AND STOOL UA Bacteria Occasional /HPF None Seen /HPF 01/21/2019 [facility] URINE AND STOOL UA WBC 0-2 /HPF None Seen /HPF 01/21/2019 [facility] URINE AND STOOL UA RBC 0-2 /HPF 0 - 2 01/21/2019 [facility] Pathology Reports No Data Provided for This Section Diagnostic Reports Report Value Date Source Abdomen wo contrast MRI PROCED URE INFORMATION: Exam: MR Abdomen Without Contrast Exam date and time: 11/26/2019 2:36 PM Age: 28 years old Clinical indication: Abdominal pain; Acute; Additional info: /[place] TECHNIQUE: Imaging protocol: MR of the abdomen without contrast. 3D rendering: MIP and/or 3D reconstructe d images were created by the technologist. COMPARISON: ABDOMEN RUQ US 11/26/2019 2:22 AM FINDINGS: Liver: Enlarged liver measures 22 cm in craniocaudal length. Hepatic steatosis. Gallbladder and bile ducts: Distended gallbladder containing numerous stones. No significant gallbladder wall thickening or pericholecystic edema. No biliary dilatation or choledocholithiasis. The common bile duct measures 5-6 mm. Pancreas: No ductal dilation, atrophy, pseudocyst, or mass. Minimal edema adjacent to the pancreatic head. Spleen: No splenomegaly. Adrenals: No mass. Kidneys and ureters: No solid mass or hydronephrosis. Stomach and bowel: No obstruction. Intraperitoneal space: No free air or free fluid. Arteries: No abdominal aortic aneurysm. Bones/joints: Normal marrow signal. Soft tissues: Unremarkable. IMPRESSION: Minimal edema adjacent to the pancreatic head may indicate a mild pancreatitis. No pancreatic ductal dilatation or pseudocyst formation. Consider correlation with pancreatic enzyme markers. Cholelithiasis. No evidence of biliary dilatation or choledocholithiasis. Hepatomegaly with diffuse fatty infiltration. Sushma Barrett MD On 11/26/2019 16:09:36; [id number] 11/26/2019 [facility] Abdomen RUQ US PROCEDURE INFOR MATION: Exam: US Abdomen Limited, Right Upper Quadrant Exam date and time: 11/26/2019 2:22 AM Age: 28 years old Clinical indication: Abdominal pain; Acute; Patient HX: Ruq pain; Additional info: /epigastric pain radiating to ruq TECHNIQUE: Imaging protocol: Real-time ultrasound of the abdomen with image documentation. Examination was focused on the right upper quadrant. COMPARISON: No relevant prior studies available. FINDINGS: Liver: The visualized liver shows increased parenchymal echo texture. Gallbladder: Distended gallbladder. There are gallstones without gallbladder sludge, pericholecystic fluid or wall thickening. Gallbladder wall thickness is 2.9 mm. Sonographic Garibay sign not dete rmine due to patient being medicated. Common bile duct: The intrahepatic and extrahepatic bile ducts are not dilated with the common bile duct measuring 3.2 mm. The distal common bile duct is not well seen. Pancreas: Obscured by bowel gas Right kidney: The right kidney measures 11.2 cm. There is normal renal contour and morphology, with normal parenchymal echotexture. There is no hydronephrosis. Aorta: Not well seen due to overlying bowel gas. Portal venous: Main portal vein shows flow. Inferior vena cava: Not well seen due to overlying bowel gas. Intraperitoneal space: There is no right abdominal ascites. IMPRESSION: 1. Distended gallbladder. Cholelithiasis . No sonographic evidence for acute cholecystitis. 2. Increased echogenicity of the liver p arenchyma which can be seen in setting of hepatic steatosis and hepatocellular disease. Please correlate. Vlad Jay MD On 11/26/2019 03:26:37; [id number] 11/26/2019 [facility] Consultation Notes No Data Provided for This Section Discharge Summaries No Data Provided for This Section History and Physicals No Data Provided for This Section Vital Signs Vital Sign Value Date Comments Source Temperature Oral (F) 98.2 F 11/29/2019 [facility] Heart Rate 76 11/29/2019 [facility] Respitory Rate 18 11/29/2019 [facility] Systolic (mm Hg) 146 11/29/2019 [facility] Diastolic (mm Hg) 97 11/29/2019 [facility] Temperature Oral (F) 97.6 F 11/29/2019 [facility] Heart Rate 81 11/29/2019 [facility] Respitory Rate 18 11/29/2019 [facility] Systolic (mm Hg) 144 11/29/2019 [facility] Diastolic (mm Hg) 85 11/29/2019 [facility] Respitory Rate 16 11/29/2019 [facility] Temperature Oral (F) 98.4 F 11/29/2019 [facility] Heart Rate 92 11/29/2019 [facility] Systolic (mm Hg) 114 11/29/2019 [facility] Diastolic (mm Hg) 71 11/29/2019 [facility] Height 185.42 cm 11/26/2019 [facility] Weight 191.392 11/26/2019 [facility] BMI Calculated 55.67 11/26/2019 [facility] Height 185.42 cm 11/26/2019 [facility] BMI Calculated 55.61 11/26/2019 [facility] Weight 191.182 11/26/2019 [facility] Temperature Oral (F) 97.3 F 08/29/2019 [facility] Heart Rate 94 08/29/2019 [facility] Respitory Rate 18 08/29/2019 [facility] Systolic (mm Hg) 188 08/29/2019 [facility] Diastolic (mm Hg) 104 08/29/2019 [facility] Systolic (mm Hg) 189 08/29/2019 [facility] Diastolic (mm Hg) 114 08/29/2019 [facility] Heart Rate 83 08/29/2019 [facility] Respitory Rate 18 08/29/2019 [facility] Temperature Oral (F) 97.6 F 08/29/2019 [facility] Height 185.42 cm 08/29/2019 [facility] BMI Calculated 56.22 08/29/2019 [facility] Weight 193.273 08/29/2019 [facility] Systolic (mm Hg) 163 08/17/2019 [facility] Diastolic (mm Hg) 99 08/17/2019 [facility] Heart Rate 81 08/17/2019 [facility] Respitory Rate 20 08/17/2019 [facility] Temperature Oral (F) 98.0 F 08/17/2019 [facility] Systolic (mm Hg) 155 08/17/2019 [facility] Diastolic (mm Hg) 97 08/17/2019 [facility] Heart Rate 87 08/17/2019 [facility] Respitory Rate 18 08/17/2019 [facility] Temperature Oral (F) 97 F 08/17/2019 [facility] Height 185.42 cm 08/17/2019 [facility] BMI Calculated 56 08/17/2019 [facility] Weight 192.528 08/17/2019 [facility] Systolic (mm Hg) 178 01/21/2019 [facility] Diastolic (mm Hg) 110 01/21/2019 [facility] Heart Rate 75 01/21/2019 [facility] Respitory Rate 18 01/21/2019 [facility] Systolic (mm Hg) 183 01/21/2019 [facility] Diastolic (mm Hg) 112 01/21/2019 [facility] Systolic (mm Hg) 179 01/21/2019 [facility] Diastolic (mm Hg) 110 01/21/2019 [facility] Weight 195.568 01/21/2019 [facility] Respitory Rate 18 01/21/2019 [facility] Heart Rate 77 01/21/2019 [facility] Temperature Oral (F) 98.4 F 01/21/2019 [facility] Height 185.42 cm 01/21/2019 [facility] BMI Calculated 56.88 01/21/2019 [facility] Encounters Location Location Details Encounter Type Encounter Number Reason For Visit Attending Provider ADM Date DC Date Status Source [facility] Emergency [id number] Hanny Valerio 01/21/2019 01/21/2019 [facility] [id number] Bari Gutierrez 08/17/2019 08/17/2019 [facility] Emergency [id number] Rosendo Diaz 08/29/2019 08/29/2019 [facility] Inpatient [id number] David Kang II 11/26/2019 11/29/2019 [facility] Procedures Procedure Code Date Perfomer Comments Source Debridement of wound of skin [id number] [facility] Assessment and Plan Assessment and Plan Date Source Extracted from:Title: Clinical Document Author: Brien Petersen MD Date: 11/29/19 SUBJECTIVE doing fine. pain controlled. no nausea OBJECTIVE abdomen soft. ASSESSMENT and EXAM s/p lap omero PLAN and TREATMENT dc home f/u 2 wks Ready for Discharge (Yes/No)?_ I/O Intake Output Balance 11/28/2019 7a-3p 1726.00 1510.00 2 16.00 3p-11p 785.00 1400.00 -615.00 11p-7a 1200.00 500.00 700.00 Totals 3711.00 3410.00 301.00 11/27/2019 7a-3p 650.00 800.00 -150.00 3p-11p 121.67 0.00 121.67 11p-7a 318.33 0.00 318.33 Totals 1090.00 800.00 290.00 24hr Labs 11/28 0730 POC Performing Locatio See Note Glucose POC 253 H 11/28 0416 Sodium Lvl 134 L Potassium Lvl 3.9 Chloride Lvl 100 CO2 27 AGAP 10.9 Glucose Lvl 273 H Creatinine Lvl 1.19 BUN 17 B/C Ratio 14 Total Protein 8.3 Albumin Lvl 3.5 Globulin 4.8 H A/G Ratio 0.7 Calcium Lvl 9.4 ALT 46 AST 25 Alk Phos 79 Bili Total 0.5 eGFR 95 WBC 10.0 RBC 5.32 Hgb 13.6 L Hct 41.3 L MCV 77.7 L MCH 25.6 L MCHC 33.0 RDW 14.6 H Platelet 190 MPV 8.9 Segs 81.4 H Monocytes 6.4 Lymphocytes 11.8 L Eosinophils 0.1 Basophils 0.3 Neutrophils # 8.1 Lymphocytes # 1.2 Monocytes # 0.6 Microcyte 1+ 11/27 2050 POC Performing Locatio See Note Glucose POC 260 H 11/27 1637 POC Performing Locatio See Note Glucose POC 249 H 11/27 1350 POC Performing Locatio See Note Glucose POC 209 H 11/27 1117 POC Performing Locatio See Note Glucose POC 190 H Extracted from:Title: Clinical Document Author: Brien Petersen MD Date: 11/28/19 PREOPERATIVE DIAGNOSIS: Gallstone pancreatitis POSTOPERATIVE DIAGNOSIS: same PROCEDURE PERFORMED: Laparoscopic cholecystectomy. SURGEON: Dr. Petersen. ELECTROMECHANICAL EQUIPMENT TESTER: stanton ANESTHESIA: General with local. ESTIMATED BLOOD LOSS: <50cc COMPLICATIONS: None. DRAINS: None. CONDITION: Stable. FINDINGS: distended gallbladder with stones INDICATIONS: The patient is a 28-year-old male with abdominal pain and findings of gallstones and pancreatitis. he is brought to the operating room for cholecystectomy. The risks and benefits of the procedure are explained, the patient voiced understanding and wishes to proceed. TECHNIQUE: After informed consent was obtained, the patient brought to the operating room, placed in supine position, general endotracheal anesthesia was administered. The abdomen was prepped and draped and a preoperative timeout was completed. An infraumbilical incision was made. The fascia was grasped and incised and the abdomen was entered without incident in open Temitope technique, 2-0 Vicryl tacking sutures were placed and a Temitope cannula was inserted. Pneumoperitoneum was established. A 12 mm trocar was placed in the subxiphoid midline and two 5 mm trocars placed in the right upper quadrant. The gallbladder was identified, grasped and elevated. Dissection was initiated in the triangle of Calot. The cystic duct and cystic artery were clearly identified, dissected free circumferentially, clipped, and divided. Dissection was then carried up in the gallbladder fossa until the gallbladder was completely removed. The specimen was placed into a bag. The area was suctioned and irrigated and was h emostatic. The ports were removed under direct vision and the specimen was removed from the umbilical port. The fascia was closed with interrupted 0 Vicryl, skin closed with 4-0 Monocryl and Dermabond, 30 mL of 0.25% Marcaine with epinephrine infiltrated into the wound. The patient tolerated procedure well and was transferred to the PACU in stable condition. Extracted from:Title: General Admission H&P * Author: Seymour Clark MD Date: 11/26/19 Impression and Plan Acute pancreatitis secondary to gallstones Diabetes mellitus type 2, uncontrolled Hypertension, uncontrolled Morbid obesity Plan Continue IV antibiotics with Zosyn Continue IV fluids Lipid panel and hemoglobin A1c pending Continue n.p.o. MRCP pending GI on board. Appreciate recommendation General surgery on board. Appreciate recommendation Continue home medications once medications once reconciled Monitor blood pressure make adjustments as needed Monitor glucose make adjustments with insulin Counseled on importance of weight loss Continue pain medication as needed Prophylaxis: -DVT: Tinea anticoagulation with Lovenox Disposition: Inpatient Code Status: -Status: Full Code -Decision Maker: Patient -Surrogate: 11/29/2019 [facility] Plan of Care No Data Provided for This Section Social History Social History Date Source Social History TypeResponse Smoking Status Never smoker; Exposure to Tobacco Smoke None; Cigarette Smoking Last 365 Days No; Reg Smoking Cessation Counseling No entered on: 11/26/19 11/26/2019 [facility] Family History No Data Provided for This Section Advance Directives No Data Provided for This Section Functional Status No Data Provided for This Section
--- OUTSIDE RECORDS SUMMARY | 2020-01-31 01:19 | XMS REPORT | Continuity of Care Document ---
Author Author [facility] t Organization [facility] Address 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 Name Role Phone Asked, Pcp No PCP Unavailable Manuel Rocha Attphys Kumar Diaz Attphys Gulshan Gutierrez Attphys Lien Nunez Attphys Elvia Cooper Attphys Unavailable IsaelCharito Attphys María Waldrop Attphys Unavailable Hilary Izaguirre Attphys Unavailable Caitlin Murphy Attphys Juan Manuel Worley Attphys Unavailable Olimpia Bertrand Attphys UnavailIrene Pro Attphys Unavailable Amari-ParedesMarty grubbsia Attphys Unavailable Moreland, Bita Attphys Unavailable Uri Nasrin Attphys Unavailable Hanny Valerio Attphys Status, Fax Attphys Unavailable KyleAlexx hendrix Attphys Unavailable Lyle Talbert Attphys Unavailable Jaylene Meza Attphys Ashley Melvin Attphys Unavailable Cherrie Eastman Attphys Unavailable Spencer Barrios Attphys Unavailable Norm Valdez Attphys Ann Parra Attphys Maggie Lizeth Attphys Unavailable Sharmin Mac Attphys Unavailable Wanda Kang II Admphys Lyle Talbert Unavailable Unavailable Spencer Barrios Unavailable Unavailable Payers Payer Name Policy Type Policy Number Effective Date Expiration Date S allen Sliding Fee - Cat 1 [id number] 2019 00:00:00 2020-01 00:00:00 [facility] Problems Condition Name Condition Details Condition Category Status Onset Date Resolution Date Last Treatment Date Treating Clinician Comments Source STOMACH PAIN STOM ACH PAIN Active 11/25/2019 [facility] Diagnosis Active 2019-11-25 19:00:00 2019-11-26 01:37:00 [facility] PANCREATITIS PANC REATITIS Active 11/25/2019 [facility] Diagnosis Active 2019-11-25 19:00:00 2019-11-29 12:52:00 [facility] EYE PAIN EYE PAIN Active 08/29/2019 [facility] Diagnosis Active 2019-08-29 00:00:00 2019-08-29 13:52:00 [facility] GENITAL AREA OTHER* ARIADNA EASTON AREA OTHER* Active 08/16/2019 [facility] Diagnosis Active 2019-08-16 00:00:00 2019-08-29 13:32:00 [facility] PENIS RASH PENI S RASH Active 01/20/2019 [facility] Diagnosis Active 2019-01-20 00:00:00 2019-01-23 04:55:00 [facility] HTN Condition Active 2017-09-27 00:00:00 2017-09-28 23:34:22 Lyle Talbert [facility] BMI 50.0-59.9 Condition Active 2017-09-27 00:00:00 2017 23:34:22 Lyle Talbert [facility] Hx of abscess Condition Active 2017-08-30 00:00:00 2017 08:45:50 Spencer Barrios Pelvic abscess [facility] MORBID OBESITY Condition Active 2017-08-30 00:00:00 201 01-28-04 08:45:50 Spencer Barrios [facility] Balanitis Condition Active 2017-08-30 00:00:00 08:45:50 Spencer Barrios [facility] Diabetes mellitus type II Condition Active 2017-08-30 00: 00:00 2017-09-27 08:45:50 Spencer Barrios [facility] Gloria gangrene Gloria gangrene Disease Active 2017-01-03 00:00:00 Marc Reynoso BILIARY ACUTE PANCREATITIS WITHOUT NECRO BILIARY ACUTE PANCREATITIS WITHOUT NECRO Active [facility] Diagnosis Active 2019-11-29 12:52:00 Kevin Dasilva BILIARY ACUTE PANCREATITIS WITHOUT NECROSIS OR INFECT BILIARY ACUTE PANCREATITIS WITHOUT NECROSIS OR INFECT Active [facility] Diagnosis Active 2019-11-28 15:56:00 Kevin Dasilva Unspecified acute conjunctivitis, right eye Unspecified acute conjunctivitis, right eye 08/29/2019 08/31/2019 [facility] Problem 2019-08-29 18:00:00 2019-08-31 22:47:31 2019-08-31 22:47:31 Kevin Dasilva Candidal balanitis Cand idal balanitis 08/16/2019 08/19/2019 [facility] Problem 2019-08-16 18:00:00 2019-08-19 22:01:02 2019-08-19 22:01:02 Kevin Dasilva Localized edema Loca lized edema 08/16/2019 08/19/2019 [facility] Problem 2019-08-16 18:00:00 2019-08-19 22:01:02 2019-07 22:01:02 Kevin Dasilva Allergies, Adverse Reactions, Alerts Allergy Name Allergy Type Status Severity Reaction(s) Onset Date Inacti ve Date Treating Clinician Comments Source HYDROCHLOROTHIAZIDE Drug allergy (disorder) Active Low Criticalit y Leg Cramps 2017-09-27 00:00:00 [facility] Family History Family Member Diagnosis Comments Start Date Stop Date Source Natural father Diabetes [facility] thodist Natural mother Hypertension [facility] Social History Social Habit Start Date Stop Date Quantity Comments Source Sex Assigned At Rey Reynoso time of call 2019-01-28 11:47:49 2019-01-28 11:47:49 01/28/2019 11:47 AM [facility] drug use, illicit 2019-01-28 08:54:14 2019-01-28 08:54:14 Never [facility] alcohol use 2019-01-28 08:54:14 2019-01-28 08:54:14 Never [facility] sexual orientation 2019-01-28 08:54:14 2019-01-28 08:54:14 Heterosexu al [facility] passive cigarette smoke exposure 2019-01-28 08:54:14 2019-01-28 08:54 :14 No [facility] assessment of health literacy ([facility] 2014 Standard s, 3C10) 2019-01-28 08:54:14 2019-01-28 08:54:14 Adequate Critical access hospital social history reviewed E&M 2019-01-28 08:54:14 2019-01-28 08:54 :14 reviewed today [facility] patient considered to be homeless 2017-08-30 09:42:15 2017-08-30 09:4 2:15 No [facility] Alcohol intake 2017-07-12 00:00:00 2017-07-12 00:00:00 Current drinker of alcohol (finding) Marc Reynoso Alcohol Comment 2017-01-04 00:00:00 2017-01-04 00:00:00 social drinke r Marc Reynoso Smoking Status Start Date Stop Date Source Social History Kevin Dasilva Medications Ordered Medication Name Filled Medication Name Start Date Stop Da te Current Medication? Ordering Clinician Indication Dosage Frequency Signature (SIG) Comments Components Source sugammadex (ANES) 2019-11-28 18:54:00 No Route: IV, Drug form: SOLN, ONCE, Stop date: 11/28/19 13:54:00 CDT jamie Dasilva ondansetron (ANES) 2019-11-28 18:42:00 No Route: IV, Drug form: INJ, ONCE, Stop date: 11/28/19 13:42:00 CDT jamie Dasilva ePHEDrine (MARLENS) 2019-11-28 18:26:00 No Route: IV, Drug form: INJ, ONCE, Stop date: 11/28/19 13:26:00 CDT esaurieulogio Dasilva glycopyrrolate (ANES) 2019-11-28 18:26:00 No Route: IV, Drug form: INJ, ONCE, Stop date: 11/28/19 13:26:00 CDT Kevin Dasilva Acetaminophen 300 MG / Codeine Phosphate 30 MG Oral Tablet 2019-11-28 18:22:00 Yes 1 - 2 tab, PO, Q6H, PRN Pain, X 7 day, # 40 tab, 0 Refill(s) Kevin Dasilva lidocaine (MARLENS) 2019-11-28 18:21:00 No Route: IV, Drug form: INJ, ONCE, Stop date: 11/28/19 13:21:00 [facility] 2019-11-28 18:21:00 No Route: IV, Drug form: INJ, ONCE, Stop date: 11/28/19 13:21:00 CDT [facility] propofol ([facility]) 2019-11-28 18:21:00 No Route: IV, Drug form: INJ, ONCE, Stop date: 11/28/19 13:21:00 CDT [facility] rocuronium ([facility]) 2019-11-28 18:21:00 No Route: IV, Drug form: INJ, ONCE, Stop date: 11/28/19 13:21:00 CDT [facility] dexamethasone ([facility]) 2019-11-28 18:21:00 No Route: IV, Drug form: INJ, ONCE, Stop date: 11/28/19 13:21:[address] [facility] cefOXitin (MARLENS) 2019-11-28 18:21:00 No Route: IV, Drug form: INJ, ONCE, Stop date: 11/28/19 13:21:00 CDT [facility] midazolam ([facility]) 2019-11-28 18:01:00 No Route: IV, Drug form: SOLN, ONCE, Stop date: 11/28/19 13:01:00 CDT [facility] Lactated Ringers Injection IV (MARLENS) 1000 mL 2019-11-28 17:26:00 No Route: IV, Total Volume: 1,000, Start date: 11/28/19 12:26:00 CDT, Stop date: 11/28/19 13:26:[address] [facility] Calcium Chloride 0.0014 MEQ/ML / Potassi um Chloride 0.004 MEQ/ML / Sodium Chloride 0.103 MEQ/ML / Sodium Lactate 0.028 MEQ/ML Injectable Solution 2019-11-28 17:08:00 No 1,000 mL, Rate: 75 ml/hr, Infuse over: 13.3 hr, Route: IV, Dosing Weight 191.392 kg, Total Volume: 1,000, Start date: 11/28/19 12:08:00 CDT, Duration: 12 hr, Stop date: 11/29/19 0:07:00 CDT, 3.19, m2, 0 [facility] Hydralazine 2019-11-28 17:08:00 No Notes: (Same as: Apresoline) Push over [address] [facility] Labetalol 2019-11-28 17:08:00 No Notes: (Same as: Normodyne, Trandate) Push over 2 minutes Give bolus over 2-[address] [facility] Acetaminophen 2019-11-28 17:08:00 No Notes: Max acetaminophen 4000 mg/day (4 gm/day). (Same as: Tylenol Extra Strength) [facility] Oxycodone Hydrochloride 5 MG Oral Tablet 2019-11-28 17:08:00 No Notes: (Same as: Roxicodone) [facility] Morphine 2019-11-28 17:08:00 No Not es: (Same as:MORPhine Sulfate) [facility] Hydromorphone 2019-11-28 17:08:00 No Notes: Same as: Dilaudid [facility] Flumazenil 2019-11-28 17:08:00 No Notes: (S josee as: Romazicon) [facility] Naloxone 2019-11-28 17:08:00 No Notes: Same as Narcan [facility] Ondansetron 2019-11-28 17:08:00 No Notes: (Same as: Zofran) MEDICATION WASTE Product Size: 4 mg Product Wasted: ___ mg [facility] Cefoxitin 2019-11-27 18:00:00 No Notes: (Sa me As: Mefoxin) [facility] phenol 2019-11-27 15:36:00 No Notes: Chloraseptic [place] (Same as: Chloraseptic, Sore Throat [place]) WASTE: F/P - Black; E - Municipal Trash Bin [facility] Hydrochlorothiazide 2019-11-26 19:00:00 No Notes: (Same as: Hydrodiuril). Give with food. [facility] lisinopril 40 mg oral tablet 2019-11-26 17:10:00 Yes 40 mg = 1 tab, PO, Daily, # 30 tab, 0 Refill(s) [facility] Hydrochlorothiazide 2019-11-26 17:10:00 Yes 12.5 mg, PO, Daily, 0 Refill(s) Kevin Dasilva 1 MG Dose 1.5 ML semaglutide 1.34 MG/ML Pen Injector [Ozempi c] 2019-11-26 17:10:00 Yes 2 mg, SUB-Q, qWeek, 0 Refill( s) Kevin Dasilva Glipizide 10 MG Oral Tablet 2019-11-26 17:10:00 Yes 10 mg = 1 tab, PO, Before Breakfast, # 30 tab, 0 Refill(s) Kevin Dasilva metFORMIN 500 mg oral tablet, extended release 2019-11-26 17:10: 00 Yes 500 mg = 1 tab, PO, Daily, with evening meal, # 30 tab , 1 Refill(s) Kevin Dasilva Lisinopril 2019-11-26 16:11:00 No Notes: (Same as: Prinivil, Zestril) Kevin Dasilva Protonix 2019-11-26 14:00:00 No Notes: For IV push reconstitute with 10 ml 0.9% sodium chloride and push over 2 minutes. (Same as: Protonix) [facility] Enox[facility]arin 2019-11-26 14:00:00 No Notes: (S josee as: Lovenox) [facility] Dextrose 50% Syringe (D50W) 2019-11-26 12:53:00 No 12.5 gm, 25 mL, Route: IVP, Drug Form: INJ, Dosing Weight 191.392, kg, PRN, PRN Blood Glucose Results, Start date: 11/26/19 7:53:00 CDT, Duration: 30 day, Stop date: 12/26/19 7:52:00 CDT, 0 [facility] Glucagon 2019-11-26 12:53:00 No 1 mg, Route: IM, Drug form: PDR/INJ, PRN, Dosing Weight 191.392, kg, PRN Blood Glucose Results, Start date: 11/26/19 7:53:00 CDT, Duration: 30 day, Stop date: 12/26/19 7:52:00 CDT, 0 [facility] Insulin Lispro 2019-11-26 12:53:00 No Notes: (Same as: Humalog) Roll in palms of hands gently; Do not shake vigorously. WASTE: F/P - Black; E - Municipal Trash Bin Stable for 28 days at room temperature. Expires in days from Date Kevin eugene Zosyn 2019-11-26 09:00:00 No Notes: (Same as: Zosyn) Dosing based on Piperacillin component MEDICATION WASTE Product Size: 3375 mg Product Wasted: ___ mg Kevin Dasilva Lactated Ringers IV 1,000 mL 2019-11-26 08:51:00 No 1,000 mL, Rate: 150 ml/hr, Infuse over: 6.7 hr, Route: IV, Dosing Weight 191.182 kg, Total Volume: 1,000, Priority: STAT, Start date: 11/26/19 3:51:00 CDT, Duration: 30 day, Stop date: 12/26/19 3:50:00 CDT, 3.19, m2, 0 Kevin Dasilva Dextrose 50% Syringe (D50W) 2019-11-26 08:47:00 No 12.5 gm, 25 mL, Route: IVP, Drug Form: INJ, Dosing Weight 191.182, kg, PRN, PRN Blood Glucose Results, Start date: 11/26/19 3:47:00 CDT, Duration: 30 day, Stop date: 12/26/19 3:46:00 CDT, 0 Kevin Dasilva Glucagon 2019-11-26 08:47:00 No 1 mg, Route: IM, Drug form: PDR/INJ, PRN, Dosing Weight 191.182, kg, PRN Blood Glucose Results, Start date: 11/26/19 3:47:00 CDT, Duration: 30 day, Stop date: 12/26/19 3:46:00 CDT, 0 Kevin Dasilva Morphine 2019-11-26 08:47:00 No Not es: (Same as:MORPhine Sulfate) Kevin Dasilva Zofran 2019-11-26 08:47:00 No Notes: (Same as: Zofran) MEDICATION WASTE Product Size: 4 mg Product Wasted: ___ mg Kevin Dasilva tramadol hydrochloride 50 MG Oral Tablet 2019-11-26 08:47:00 No Notes: Not to exceed 400mg/day. (Same As: Ultram) Kevin Dasilva Hydralazine Hydrochloride 25 MG Oral Tablet 2019-11-26 08:47:00 No Notes: (Same as: Apresoline) May interfere w/enteral feedings Take With Food. Norm Dasilva Docusate Sodium 100 MG Oral Capsule [Colace] 2019-11-26 08:47:00 No Notes: (Same as: Colace) (Do Not Crush) Kevin Dasilva Acetaminophen 2019-11-26 08:47:00 No Notes: Do not exceed 4 gm/day. (Same as: Tylenol) [facility] Potassium Chloride 2019-11-26 08:47:00 No Notes: (Same as: K-Dur 20) "Do Not Crush" Give with food and full glass of water For patients unable to swallow tablet, dissolve in one half glass of water. Allow about 2 minutes for the tablets to disintegrate. Stir before giving to prepare slurry and administer. Please exclude Patient s with feeding tube less than 14 Icelandic (Dobhoff, J-tube etc) and pediatric and patients. [facility] potassium phosphate-sodium phosphate 250 mg-280 mg-160 mg oral powder for reconstitution 2019-11-26 08:47:00 No Notes: (Same as: Phos-NaK) Each 1.5 gm pkt has 250mg phosphorous. Mix w/2.5oz water and stir. [facility] potassium phosphate 2019-11-26 08:47:00 No Notes: (Same as: K Phosphate.) Do not infuse phosphorous concurrently in the same line as TPN or IVF that contains calcium. For double lumen central lines, phosphorous may be infused in a separate lumen from TPN. 1 mMol phoshate has 1.47 mEq potassium Infuse over 4 hours [facility] sodium phosphate 2019-11-26 08:47:00 No Notes: Infuse over 4 hour. Do not infuse phosphorous concurrently in the same line as TPN or IVF that contains calcium. For double lumen central lines, phosphorous may be infused in a separate lumen from TPN. [facility] manuel Magnesium Sulfate 2019-11-26 08:47:00 No Notes: WASTE: F/P - Sink; E - Municipal Trash Bin [facility] Magnesium Oxide 2019-11-26 08:47:00 No Notes: (Same as: Mag-Ox 400) Magnesium oxide 706ym=[id number] elemental magnesium Dose=____mg magnesium oxide (___mg elemental magnesium) [facility] Calcium Gluconate 2019-11-26 08:47:00 No Notes: Contains: calcium gluconate 20mg/mL NaCl 0.67% 100mL WASTE: F/P - Sink; E - Municipal Trash Bin [facility] Acetaminophen 325 MG / Hydrocodone Bitartrate 10 MG Or al Tablet [[place] 10/325] 2019-11-26 08:36:00 No Note s: Do not exceed 4gm/day of acetaminophen. (Same as: [place] 325/10) [facility] Zofran 2019-11-26 06:57:00 No 4 mg, Route: IVP, Drug form: INJ, ONCE, Dosing Weight 191.182, kg, Priority: STAT, Start date: 11/26/19 1:57:00 CDT, Stop date: 11/26/19 1:57:00 CDT [facility] Morphine 2019-11-26 06:56:00 No 4 mg, Route: IVP, ONCE, Dosing Weight 191.182, kg, Priority: STAT, Start date: 11/26/19 1:56:00 CDT, Stop date: 11/26/19 1:56:[address] [facility] Lidocaine Viscous 2% mucous membrane solution 2019-11-26 06:56:0 0 No 10 mL, Route: PO, ONCE, Start date: 08/15 1:56:00 CDT, Stop date: 11/26/19 1:56:[address] [facility] Aluminum Hydroxide / Magnesium Hydroxide / Simethicone 2019-11-26 06:56:00 No 30 mL, Route: P O, Dosing Weight 191.182, kg, ONCE, STAT, Start date: 11/26/19 1:56:00 CDT, Stop date: 11/26/19 1:56:[address] [facility] Saline Flush 0.9% 2019-11-26 06:19:00 No Notes: (Same as: BD Posiflush) [facility] erythromycin ophthalmic 0.5% ointment 2019-08-29 19:43:00 Y es 1 appl, RIGHT EYE, QID, X 7 day, # 3 gm, 0 Refill(s) [facility] fluorescein ophthalmic 1 mg test 2019-08-29 19:25:00 No 1 strip, Route: OPTH, ONCE, Priority: STAT, Start date: 08/29/19 13:25:00 PASSENGER SERVICE REPRESENTATIVE, Stop date: 08/29/19 13:25:00 PASSENGER SERVICE REPRESENTATIVE Kevin Dasilva Proparacaine hydrochloride 5 MG/ML Ophthalmic Solution 2019-08-29 19:25:00 No 1 drp, Route: B OTH EYES, ONCE, Drug form: SOLN, Priority: STAT, Start date: 08/29/19 13:25:00 PASSENGER SERVICE REPRESENTATIVE, Stop date: 08/29/19 13:25:00 PASSENGER SERVICE REPRESENTATIVE Kevin Dasilva Fluconazole 150 MG Oral Tablet [Diflucan] 2019-08-17 05:53:00 Yes 150 mg = 1 tab, PO, ONCE, # 1 tab, 0 Refill(s) Kevin Dasilva Clotrimazole 10 MG/ML Topical Cream 2019-08-17 05:51:00 Yes 1 appl, TOP, BID, PRN Affected Area(s), apply to penile fungal infection, X 14 day, # 30 gm, 0 Refill(s) Kevin Dasilva (ATORVASTATIN CALCIUM) 10 MG TABS 2019-01-29 00:00:00 Yes Betsey Charito Isael 1{Tablet} 1xD 1 TAB By Mouth Q HS [facility] Diflucan 2019-01-21 07:03:00 No 200 mg, Route: PO, ONCE, Dosing Weight 195.568, kg, Start date: 01/21/19 2:03:00 CDT, Stop date: 01/21/19 2:03:00 CDT, ABX Indication: Genital Tract Infection Kevin Dasilva Fluconazole 100 MG Oral Tablet [Diflucan] 2019-01-21 06:59:00 Yes 100 mg = 1 tab, PO, Daily, X 7 day, # 7 tab, 0 Refill(s) Kevin Dasilva Clotrimazole 10 MG/ML Topical Cream 2019-01-21 06:59:00 Yes 1 appl, TOP, BID, apply to affected area for 2 to 4 weeks, X 7 day, # 15 gm, 0 Refill(s) Kevin Dasilva NORVASC (AMLODIPINE BESYLATE) 10 MG TABS 2017-10-11 00:00: 00 Yes Betsey Charito Isael 1 by mouth every day [facility] (LISINOPRIL) 20 MG TABS 2017-09-27 00:00:00 Yes Betsey A nn Isael 1 by mouth every day [facility] lt (GLIPIZIDE) 10 MG TABS 2017-08-30 00:00:00 Yes Betsey An n Isael Take 1 tab By Mouth once a daily [facility] (METFORMIN HCL) 1000 MG TABS 2017-08-30 00:00:00 Yes Betsey Charito Isael 1 by mouth twice a day [facility] (SITAGLIPTIN PHOSPHATE) 50 MG TABS 08-30 00:00:00 2017-10-11 00:00:00 No 1 By Mouth once a day [facility] (NYSTATIN) [id number] UNIT/GM CREA 2017-08-30 00:00:00 2017-09-27 00 :00:00 No Apply to affected area 4 javier es a day until 48 hours after it completely resolves [facility] (AZITHROMYCIN) 500 MG TABS 2017-08-30 00:00:00 2017-09-27 00:00:00 No 2 tabs by mouth single dose Critical [facility] hospital Vital Signs Vital Name Observation Time Observation Value Comments Source Temperature Oral (F) 2019-11-29 16:20:00 98.2 F [facility] Heart Rate 2019-11-29 16:20:00 [facility] Respitory Rate 2019-11-29 16:20:00 [facility] Systolic (mm Hg) 2019-11-29 16:20:00 [facility] Diastolic (mm Hg) 2019-11-29 16:20:00 [facility] Temperature Oral (F) 2019-11-29 13:00:00 97.6 F [facility] Heart Rate 2019-11-29 13:00:00 [facility] Respitory Rate 2019-11-29 13:00:00 [facility] Systolic (mm Hg) 2019-11-29 13:00:00 [facility] Diastolic (mm Hg) 2019-11-29 13:00:00 [facility] Respitory Rate 2019-11-29 12:19:00 [facility] Temperature Oral (F) 2019-11-29 09:09:00 98.4 F [facility] Heart Rate 2019-11-29 09:09:00 [facility] Systolic (mm Hg) 2019-11-29 09:09:00 [facility] Diastolic (mm Hg) 2019-11-29 09:09:00 [facility] Height 2019-11-26 11:12:00 185.42 cm [facility] Weight 2019-11-26 11:12:00 [facility] BMI Calculated 2019-11-26 11:12:00 [facility] Height 2019-11-26 06:20:00 185.42 cm [facility] BMI Calculated 2019-11-26 06:20:00 [facility] Weight 2019-11-26 06:20:00 [facility] Temperature Oral (F) 2019-08-29 19:48:00 97.3 F [facility] Heart Rate 2019-08-29 19:48:00 [facility] Respitory Rate 2019-08-29 19:48:00 [facility] Systolic (mm Hg) 2019-08-29 19:48:00 [facility] Diastolic (mm Hg) 2019-08-29 19:48:00 [facility] Systolic (mm Hg) 2019-08-29 19:16:00 [facility] Diastolic (mm Hg) 2019-08-29 19:16:00 [facility] Heart Rate 2019-08-29 19:16:00 [facility] Respitory Rate 2019-08-29 19:16:00 [facility] Temperature Oral (F) 2019-08-29 19:16:00 97.6 F [facility] Height 2019-08-29 19:16:00 185.42 cm [facility] BMI Calculated 2019-08-29 19:16:00 [facility] Weight 2019-08-29 19:16:00 [facility] Systolic (mm Hg) 2019-08-17 06:15:00 [facility] Diastolic (mm Hg) 2019-08-17 06:15:00 [facility] Heart Rate 2019-08-17 06:15:00 [facility] Respitory Rate 2019-08-17 06:15:00 [facility] Temperature Oral (F) 2019-08-17 06:15:00 98.0 F [facility] Systolic (mm Hg) 2019-08-17 04:29:00 [facility] Diastolic (mm Hg) 2019-08-17 04:29:00 [facility] Heart Rate 2019-08-17 04:29:00 [facility] Respitory Rate 2019-08-17 04:29:00 [facility] Temperature Oral (F) 2019-08-17 04:29:00 97 F [facility] Height 2019-08-17 04:29:00 185.42 cm [facility] BMI Calculated 2019-08-17 04:29:00 [facility] Weight 2019-08-17 04:29:00 [facility] Systolic (mm Hg) 2019-01-21 07:02:00 [facility] Diastolic (mm Hg) 2019-01-21 07:02:00 [facility] Heart Rate 2019-01-21 07:02:00 [facility] Respitory Rate 2019-01-21 07:02:00 [facility] Systolic (mm Hg) 2019-01-21 06:40:00 [facility] Diastolic (mm Hg) 2019-01-21 06:40:00 [facility] Systolic (mm Hg) 2019-01-21 06:15:00 [facility] Diastolic (mm Hg) 2019-01-21 06:15:00 [facility] Weight 2019-01-21 05:48:00 [facility] Respitory Rate 2019-01-21 05:48:00 [facility] Heart Rate 2019-01-21 05:48:00 [facility] Temperature Oral (F) 2019-01-21 05:48:00 98.4 F [facility] Height 2019-01-21 05:48:00 185.42 cm [facility] BMI Calculated 2019-01-21 05:48:00 [facility] Procedures Procedure Date / Time Performed Performing Clinician Sour e HEMOGLOBIN A1C - In House 2017-08-30 10:57:00 Jenelle Valdez [facility] Glucose Stick 2017-08-30 10:57:00 Jenelle Valdez Critical access hospital Debridement of wound of skin [facility] Plan of Care Planned Activity Planned Date Details Comments Source Future Scheduled Test 2020-01-25 00:00:00 INFLUENZA VACCINE [code = INFLUENZA VACCINE] Marc Reynoso Encounters Start Date/Time End Date/Time Encounter Type Admission Type Attendi RUST Care Department Encounter ID Source 2019-11-26 01:12:07 2019-11-29 11:28:00 Outpatient Jasmeet Forde Manuel [facility] [id number] 2019-11-26 03:47:00 2019-11-26 01:12:00 Inpatient E MHNE MHNE [id number] 2019-08-29 13:08:56 2019-08-29 13:59:00 Outpatient Rom Diaz [facility] [id number] 2019-08-29 13:08:00 2019-08-29 13:08:00 Emergency E MHNE MHNE [id number] [facility] 2019-08-16 22:16:18 2019-08-17 00:17:00 Outpatient EstherravenVitalgraham [facility] [id number] 2019-08-16 22:16:00 2019-08-16 22:16:00 Emergency E MHNE NE [id number] [facility] 2019-03-23 00:00:00 2019-03-23 00:00:00 Office Visit Lien [facility] Encounter/[id number] [facility] 2019-02-07 00:00:00 2019-02-07 00:00:00 Office Visit Elvia Cooper [facility] Encounter/[id number] [facility] 2019-02-07 00:00:00 2019-02-07 00:00:00 Office Visit Elvia Cooper [facility] Encounter/[id number] [facility] 2019-02-04 00:00:00 2019-02-04 00:00:00 Office Visit Betsey Harper [facility] Encounter/[id number] [facility] 2019-01-31 00:00:00 2019-01-31 00:00:00 Office Visit María Price Kim Hernandez Ray, Omaida [facility] Encounter/[id number] [facility] 2019-01-30 00:00:00 2019-01-30 00:00:00 [facility]/[id number] [facility] 2019-01-29 00:00:00 2019-01-29 00:00:00 Office Visit Sindy navarroJuan Manuel bro Jasmin Ann Babineaux, Shanequia Victoria Hernandez Ray, [facility] Adult Medicine Encounter/[id number] [facility] 2019-01-28 00:00:00 2019-01-28 00:00:00 Office Visit [facility]/[id number] [facility] 2019-01-28 00:00:00 2019-01-28 00:00:00 [facility] En[facility]/[id number] [facility] 2019-01-28 00:00:00 2019-01-28 00:00:00 Office Visit Malena Harris [facility] Public Health Services Encounter/[id number] [facility] 2019-01-28 00:00:00 2019-01-28 00:00:00 [facility]/[id number] [facility] 2019-01-28 00:00:00 2019-01-28 00:00:00 Office Visit I Betsey zhang, Bita Waldrop, María Beckwith, Malena Nunez, Lien Grewal, Nasrin Morales, [facility]ebede[facility] [id number] [facility] 2019-01-21 00:33:38 2019-01-21 02:13:00 Outpatient Hanny Valerio [facility] [id number] 2019-01-21 00:33:00 2019-01-21 00:33:00 Emergency E [facility] [address] 2018-08-21 00:00:00 2018-08-21 00:00:00 Office Visit Status, Fax [facility] Encounter/[id number] [facility] 2018-08-02 00:00:00 2018-08-02 00:00:00 Office Visit Porter bean Josewanda [facility] Encounter/[id number] [facility] 2017-10-11 00:00:00 2017-10-11 00:00:00 Office Visit Lyle Talbert [facility] Encounter/[id number] [facility] 2017-10-11 00:00:00 2017-10-11 00:00:00 Office Visit Lyle Talbert [facility] Encounter/[id number] [facility] 2017-10-11 00:00:00 2017-10-11 00:00:00 Office Visit Jaylene Mckenzie Maria Khalid, Shoaib [facility] Encounter/[id number] [facility] 2017-10-10 00:00:00 2017-10-10 00:00:00 Office Visit Elvia Cooper [facility] Encounter/[id number] [facility] 2017-10-09 00:00:00 2017-10-09 00:00:00 Office Visit Lyle Talbert [facility] Encounter/[id number] [facility] 2017-10-09 00:00:00 2017-10-09 00:00:00 Office Visit Samara Melvin [facility] Encounter/[id number] [facility] 2017-09-27 00:00:00 2017-09-27 00:00:00 Office Visit Lyle Talbert [facility] Encounter/[id number] [facility] 2017-09-27 00:00:00 2017-09-27 00:00:00 Office Visit Lyle Talbert [facility] Encounter/[id number] [facility] 2017-09-27 00:00:00 2017-09-27 00:00:00 Office Visit Lyle Talbert [facility] Encounter/[id number] [facility] 2017-09-27 00:00:00 2017-09-27 00:00:00 Office Visit Jaylene Mckenzie Maria Khalid, Shoaib [facility] Encounter/[id number] [facility] 2017-09-06 00:00:00 2017-09-06 00:00:00 [facility] En[facility]/[id number] [facility] 2017-09-01 00:00:00 2017-09-01 00:00:00 Office Visit [facility] Encounter/[id number] [facility] 2017-08-30 00:00:00 2017-08-30 00:00:00 Office Visit Spencer [facility]/[id number] [facility] 2017-08-30 00:00:00 2017-08-30 00:00:00 Office Visit Spencer [facility]iber [facility] Encounter/[id number] [facility] 2017-08-30 00:00:00 2017-08-30 00:00:00 Office Visit Jenelle Dickerson, Ann Serrano, Sharmin Patel, Alexx Leblanc [facility] Encounter/[id number] [facility] 2017-07-12 00:00:00 2017-07-12 00:00:00 Office Visit Spencer [facility]iber [facility] Encounter/[id number] [facility] Results Test Description Test Time Test Comments Results Result Comments Source CHEM PANEL 2019-11-29 09:16:00 273 Kate venegas [facility] CHEM PANEL 2019-11-29 09:16:00 [facility] 2019-11-29 09:16:00 1.19 [facility] rubi [facility] CHEM PANEL 2019-11-29 09:16:00 134 [facility] [employer]ara Dolliver CHEM PANEL 2019-11-29 09:16:00 3.9 Memor ial Dolliver CHEM PANEL 2019-11-29 09:16:00 100 [facility] ial [facility] CHEM PANEL 2019-11-29 09:16:00 27 [facility] ial [facility] CHEM PANEL 2019-11-29 09:16:00 9.4 [facility] CHEM PANEL 2019-11-29 09:16:00 8.3 [facility] CHEM PANEL 2019-11-29 09:16:00 3.5 [facility] CHEM PANEL 2019-11-29 09:16:00 46 [facility] CHEM PANEL 2019-11-29 09:16:00 25 [facility] ial Dolliver CHEM PANEL 2019-11-29 09:16:00 79 [facility] CHEM PANEL 2019-11-29 09:16:00 0.5 [facility] CHEM PANEL 2019-11-29 09:16:00 10.9 [facility] CHEM PANEL 2019-11-29 09:16:00 Test Item B/C Ratio (test code = B/C Ratio) 14 1 6-25 [facility] [id number] 09:16:004.8[facility]annCHEM PANEL 2019-11-29 09:16:00* Test Item Value Reference Range Interpretation Comments A/G Ratio (test code = A/G Ratio) 0.7 1 0.7-1.6 [facility]annCHE[facility] [id number] 09:16:0095[facility]annHEMATOLOGY 2019-11-29 09:16:0081.4[facility] IjqkhhhOWNXUPFOMS0311-42-56 09:16:0011.8[facility] WdtslguECCLKBFDFJ9023-52-07 09:16:006.4[facility] HqpvmhaJTPWUGMPRX4120-17-07 09:16:000.1[facility] NkqiyanAVOPOCUZJJ4364-68-19 09:16:000.3[facility] TJDENGGFDE7027-71-78 09:16:008.1[facility] DpwemfsSYLGUFLMCU9693-12-20 09:16:001.2 [facility] LlfwvbtLTNIXIFPCQ7094-83-25 09:16:000.6[facility]annHEMATOLOGY 2019-11-29 09:16:001+ *ABN*(11/29/19 4:16 AM)[facility] ApmmvidUJUPYYEHPP1078-36-82 09:16:0010.0[facility] MblasmrXPCCFMIWSH6548-62-82 09:16:005.32[facility] Brwon YFKTQENPND6788-72-63 09:16:0013.6[facility] JeupoqrQZZLJOUXLN9977-25-30 09:16:00 41.3[facility] VglcuzpWPMKYCKQQR9258-70-24 09:16:0077.7[facility] HermannHEMATOLOGY 2019-11-29 09:16:00* Test Item Value Reference Range Interpretation Comments MCH (test code = MCH) 25.6 pg 27.0-31.0 [facility] UefovegEBKQUAJLAG9067-22-01 09:16:0033.0[facility] HermannHEMATOLOGY 2019-11-29 09:16:0014.6[facility] XpxkfvsPDXREVJNJO9268-02-89 09:16:28229Sdyygqke UkxzpjxCVXQTGGLLA9606-21-73 09:16:008.9[facility] HermannCHEM HWWUN7496-98-58 07:47:796349Vzhmyglo HermannCHEM XEJET3005-27-89 08:07:004.1[facility] HermannCHEM RISSU0408-71-95 08:07:97148Qsrwhvgb HermannCHEM LULBC2471-93-83 08:07:0011 [facility]annCHEM FUFWB0317-68-17 08:07:001.07[facility] HermannCHEM PANEL 2019-11-27 08:07:49985Dgehwnwl HermannCHEM ZEFZD6316-61-82 08:07:004.0[facility] HermannCHEM MVIBR7800-46-88 08:07:36029Iqfoxynv HermannCHEM UKMSW6991-73-04 08:07:0031[facility]annCHEM UGCWD7466-45-65 08:07:008.8[facility]annCHEM ETPCL7303-54-84 08:07:007.4[facility]annCHEM SASWK3938-39-43 08:07:003.1 [facility]annCHEM JOYNR9091-93-73 08:07:0031[facility] HermannCHEM PANEL 2019-11-27 08:07:0015[facility] HermannCHEM OGHFM6171-83-84 08:07:0068[facility]annCHEM SLRER8357-91-77 08:07:000.7[facility] HermannCHEM CMDIO6609-28-26 08:07:008.0[facility] HermannCHEM WAJDD0521-45-53 08:07:00* Test Item Value Reference Range Interpretation Comments B/C Ratio (test code = B/C Ratio) 10 1 6-25 [facility]annCHEM XSJQE6331-96-40 08:07:004.3[facility] HermannCHEM PANEL 2019-11-27 08:07:00* Test Item Value Reference Range Interpretation Comments A/G Ratio (test code = A/G Ratio) 0.7 1 0.7-1.6 [facility]annCHEM CRSMF6692-45-95 08:07:30035Hsupijaj HermannCHEM PANEL 2019-11-27 08:07:002.1[facility] HermannCHEM XLCYC8621-73-37 08:07:311364Rymyoggw PvfkxloBBDFTATMQP7527-44-96 08:07:007.6[facility] HqqqojhMTVWIWJHWJ1872-01-61 08:07:005.04[facility] JquuuicAPKJPNDPLA2907-64-50 08:07:0013.1[facility] RGQHBVQGKH8119-38-60 08:07:0039.6[facility] GcvquhtWFMVCTOLXL6239-57-79 08:07:00 78.7[facility] EvdisouPACJMSNGDO5970-36-71 08:07:00* Test Item Value Reference Range Interpretation Comments MCH (test code = MCH) 25.9 pg 27.0-31.0 [facility] CyhhbzxMXEGLNGVNQ8687-88-81 08:07:0032.9[facility] HermannHEMATOLOGY 2019-11-27 08:07:0014.5[facility] QbwjxbfBYBDPIGPZT5138-19-42 08:07:45494Byzsxbre KcjjvyqRGBXHTWTYV8560-66-65 08:07:009.0[facility] FymwnrpOHNSQTHHHW1908-77-55 08:07:0071.5[facility] YaedjmsCLQPHPKZIG6744-93-24 08:07:0020.7[facility] DVRPUCRZHV6468-00-73 08:07:006.1[facility] XmngkprWAWEZYPJRE9129-78-18 08:07:001.5 [facility] EistuttLBVNJSTGHY2147-08-77 08:07:000.2[facility] HermannHEMATOLOGY 2019-11-27 08:07:005.4[facility] YtnppzmRFDHOJFTYB8223-36-01 08:07:001.6[facility] MgtizhjHZDRQPWKXI8559-06-71 08:07:000.5[facility] JsdbvwnHQGDDCEBLI6653-76-03 08:07:000.1[facility] VfvvvasAMGRRMRKEL7004-34-17 08:07:001+ *ABN*(11/27/19 3:07 AM) [facility] DnzcoizXEVRKT5608-04-76 08:07:06130Czrkrcjg AiqjjbhOCGEMD4013-98-82 08:07:13119Pvohecef DnlugxbUSDQBR1745-78-67 08:07:0032[facility] HermannLIPIDS 2019-11-27 08:07:00* Test Item Value Reference Range Interpretation Comments CHD Risk (test code = CHD Risk) 4.44 1 4.00-7.30 [facility] HgutjixTTPQFK0921-72-07 08:07:0067[facility] WfexbdpMBZUJR5388-95-69 08:07:00* Test Item Value Reference Range Interpretation Comments VLDL (test code = VLDL) 43 1 [facility] HermannSPECIAL WQXTYYJGY2741-72-96 08:07:0010.0[facility] HermannCARDIAC MFTGYVL3771-34-41 06:40:00<0.02[facility] HermannCHEM FMLYV5920-10-40 06:40:79934 [facility] HermannCHEM MCLDI6553-60-89 06:40:0011[facility] HermannCHEM PANEL 2019-11-26 06:40:001.09[facility] HermannCHEM KHBFY2557-78-53 06:40:22251Zvnqusbq HermannCHEM ETGCY8905-08-33 06:40:004.3[facility] HermannCHEM KKCKV5132-97-80 06:40:37406Nbbluidv HermannCHEM IIYCC6489-21-86 06:40:0030[facility] HermannCHEM QMZBB5464-16-72 06:40:009.3[facility] HermannCHEM UPTKK4108-72-46 06:40:008.3 [facility] HermannCHEM QTAQW1682-19-03 06:40:003.6[facility] HermannCHEM PANEL 2019-11-26 06:40:0035[facility] HermannCHEM UCODP1535-96-33 06:40:0014[facility] HermannCHEM PBKPN7603-71-78 06:40:0099[facility] HermannCHEM WJXOE8444-30-65 06:40:000.5[facility] HermannCHEM JYYRD8623-02-16 06:40:007.3[facility] HermannCHEM CBUYY7946-83-72 06:40:00* Test Item Value Reference Range Interpretation Comments B/C Ratio (test code = B/C Ratio) 10 1 6-25 [facility]annCHEM DIJEZ3200-80-30 06:40:004.7[facility] HermannCHEM PANEL 2019-11-26 06:40:00* Test Item Value Reference Range Interpretation Comments A/G Ratio (test code = A/G Ratio) 0.8 1 0.7-1.6 [facility] HermannCHEM EZUHL3012-50-53 06:40:82960Hjaebxru HermannCHEM PANEL 2019-11-26 06:40:1921690Ulphiumv ExbzfczRBFHZUUEVN6667-92-33 06:40:008.1[facility] XqgmmbmTJTRZVCQNP8989-63-67 06:40:005.36[facility] JrtldwxRSXTVTCHNO9024-64-57 06:40:0013.8[facility] KaijnevHOQIVZPJOQ6703-77-89 06:40:0041.8[facility] QZMLXFXKYF8144-13-89 06:40:0078.0[facility] YurscbzSQSEHCRRFS9489-26-57 06:40:00* Test Item Value Reference Range Interpretation Comments MCH (test code = MCH) 25.8 pg 27.0-31.0 [facility] UxxywivTSPLAKYRUT0737-07-68 06:40:0033.1[facility] HermannHEMATOLOGY 2019-11-26 06:40:0014.4[facility] FilfslcDGUUKAFAAD1677-54-04 06:40:55774Nthijgrl GpdpiqrEDTDKDKWDM2908-91-48 06:40:008.6[facility] TwzdidtCOOLOHZUGJ8408-05-39 06:40:0070.8[facility] KdebhyrINMVAKMIPT3359-40-94 06:40:0021.1[facility] JGECJHUMVY7066-10-27 06:40:006.8[facility] KbqdbquKZMPDORPRE6546-74-27 06:40:000.9 [facility] RifftcmYAWYGHFGBG6678-39-48 06:40:000.4[facility] HermannHEMATOLOGY 2019-11-26 06:40:005.7[facility] VehrpymPOGYNYEBKU2773-71-12 06:40:001.7[facility] DkemihbTYOWPKWCAA1420-41-70 06:40:000.6[facility] NstmixoMRHAOXRDVF4360-32-89 06:40:000.1[facility] AbnymddJXFHYGNOXT9800-34-71 06:40:001+ *ABN*(11/26/19 1:40 AM) [facility] AND GISFT7649-43-85 05:32:00Yellow *NA*(08/16/19 11:32 PM) [facility] WJAHS5747-39-68 05:32:00Clear (08/16/19 11:32 PM) [facility] KWRGL3484-95-86 05:32:00* Test Item Value Reference Range Interpretation Comments UA Spec Grav (test code = UA Spec Grav) 1.015 1 [facility] AND PZAUA7737-54-05 05:32:00* Test Item Value Reference Range Interpretation Comments UA pH (test code = UA pH) 6.0 1 5.0-8.0 [facility] PTLPM3583-71-34 05:32:00Negative *NA*(08/16/19 11:32 PM)[facility] AND LZWYV2491-73-52 05:32:00Negative (08/16/19 11:32 PM) [facility] ZRBQA4430-14-77 05:32:000.2[facility] AND APLXQ5074-98-65 05:32:00Negative (08/16/19 11:32 PM)[facility] LZFDM8912-64-67 05:32:00Negative (08/16/19 11:32 PM)[facility] Hermannhepatitis C antibody, rhvna2327-86-02 09:24:00* Test Item Value Reference Range Interpretation Comments hepatitis C antibody, serum (test code = 2722) <0.1 0.0-0.9 [facility]Chemiluminescent Microparticle Immuno Assay) 2019-01-28 09:24:00* Test Item Value Reference Range Interpretation Comments HIV-CMIA (Chemiluminescent Microparticle Immuno Assay) (test code = 022008) Non Reactive Non Reactive [facility], blktn8964-10-61 09:24:00* Test Item Value Reference Range Interpretation Comments microalbumin/creatinine ratio, urine (test code = 73593-3) 4 8.9 MG/G CREAT 0.0-30.0 H [facility]total urine svaxnh8335-74-46 09:24:00* Test Item Value Reference Range Interpretation Comments microalbumin/total urine volume (test code = 00511-3) 63.3 mg/L [facility], random, dohus4546-56-72 09:24:00* Test Item Value Reference Range Interpretation Comments creatinine, random, urine (test code = 5167) 129.4 mg/dL [facility] cholesterol, vmlgp9062-54-21 09:24:00* Test Item Value Reference Range Interpretation Comments LDL cholesterol, serum (test code = 2089-1) 28 mg/dL 0-99 [facility] density ypxmyaxfftqz3387-75-97 09:24:00* Test Item Value Reference Range Interpretation Comments very low density lipoproteins (test code = 2548) 72 mg/dL 5-40 H [facility] cholesterol, iyunx2539-08-46 09:24:00* Test Item Value Reference Range Interpretation Comments HDL cholesterol, serum (test code = 2085-9) 30 mg/dL >39 L [facility], serum, mrgmwio2017-68-65 09:24:00* Test Item Value Reference Range Interpretation Comments triglyceride, serum, fasting (test code = 2571-8) 359 mg/dL 0-14 9 H [facility]olesterol, gwedq2333-21-94 09:24:00* Test Item Value Reference Range Interpretation Comments cholesterol, serum (test code = 2093-3) 130 mg/dL 100-199 [facility] amin[facility] (SGPT), rnwhv1811-92-46 09:24:00 * Test Item Value Reference Range Interpretation Comments alanine aminotransferase (SGPT), serum (test code = 40) 46 1/L 0-44 H [facility]dwell[facility]partate aminotransferase (SGOT), kdstk6369-12-15 09:24:00* Test Item Value Reference Range Interpretation Comments aspartate aminotransferase (SGOT), serum (test code = 39) 25 1/L 0-40 [facility] phosphatase, lcimz5906-27-14 09:24:00* Test Item Value Reference Range Interpretation Comments alkaline phosphatase, serum (test code = 3) 107 1/L 39-117 [facility], serum, ercan8606-89-65 09:24:00* Test Item Value Reference Range Interpretation Comments bilirubin, serum, total (test code = 43) 0.4 mg/dL 0.0-1.2 [facility] Healthalbumin/globulin ratio, nvcbu4142-75-71 09:24:00* Test Item Value Reference Range Interpretation Comments albumin/globulin ratio, serum (test code = 146) 1.5 1.2-2. 2 [facility] Healthglobulin, uhxcl5113-22-95 09:24:00* Test Item Value Reference Range Interpretation Comments globulin, serum (test code = 3059) 3.0 1.5-4.5 [facility] Healthalbumin, ajimt6625-31-64 09:24:00* Test Item Value Reference Range Interpretation Comments albumin, serum (test code = 2) 4.4 g/dL 3.5-5.5 [facility] Healthprotein, total, kzdku8464-61-15 09:24:00* Test Item Value Reference Range Interpretation Comments protein, total, serum (test code = 36) 7.4 g/dL 6.0-8.5 [facility] Healthcalcium, tprph4497-88-93 09:24:00* Test Item Value Reference Range Interpretation Comments calcium, serum (test code = 11) 9.6 mg/dL 8.7-10.2 [facility], venous grlvk8773-11-98 09:24:00* Test Item Value Reference Range Interpretation Comments carbon dioxide, venous blood (test code = 15) 23 mmol/L 20-29 [facility] Healthchloride, zsaae8018-18-13 09:24:00* Test Item Value Reference Range Interpretation Comments chloride, serum (test code = 13) 98 mmol/L 96-106 [facility] Healthpotassium, wdbjy1833-79-99 09:24:00* Test Item Value Reference Range Interpretation Comments potassium, serum (test code = 35) 4.5 mmol/L 3.5-5.2 [facility]odium, rjmat5243-26-77 09:24:00* Test Item Value Reference Range Interpretation Comments sodium, serum (test code = 159) 138 mmol/L 134-144 [facility]dwell[facility]a nitrogen/creatinine ratio, juwyl8310-49-08 09:24:00 * Test Item Value Reference Range Interpretation Comments urea nitrogen/creatinine ratio, serum (test code = 2462) 10 9-20 [facility] HealtheGFR if Qmxdusjp8769-00-22 09:24:00* Test Item Value Reference Range Interpretation Comments eGFR if (test code = 487594) 81 mL/min/((173/100). m2) >59 [facility] Glomerular Filtration Rate (calc)2019-01-28 09:24:00* Test Item Value Reference Range Interpretation Comments Estimated Glomerular Filtration Rate (calc) (test code = 60566) 70 mL/min/((173/100).m2) >59 [facility]inine, yxgtg5420-24-80 09:24:00* Test Item Value Reference Range Interpretation Comments creatinine, serum (test code = 18) 1.35 mg/dL 0.76-1.27 H [facility]dwellurea nitrogen, lickt9962-09-18 09:24:00* Test Item Value Reference Range Interpretation Comments urea nitrogen, blood (test code = 9) 14 mg/dL 6-20 [facility] glucose, tdoatl1136-48-22 09:24:00* Test Item Value Reference Range Interpretation Comments blood glucose, random (test code = 8) 307 mg/dL 65-99 H [facility]dwellhemoglobin A1C, blood, as % of total mhqaaakion3189-77-80 08:54:14* Test Item Value Reference Range Interpretation Comments hemoglobin A1C, blood, as % of total hemoglobin (test code = 4548-4 ) 9.4 % [facility] glucose, gtsfkl3614-01-48 08:54:14* Test Item Value Reference Range Interpretation Comments blood glucose, random (test code = 8) 313 mg/dL [facility] JTNBKMFSBQ9938-01-44 06:51:00Urine *NA*(01/21/19 1:51 AM)[facility]annMOLECULAR QLWVILXRXS2358-06-29 06:51:00Negative *NA*(01/21/19 1:51 AM)[facility]annMOLECULAR MNOKTQODEC4885-66-30 06:51:00 Negative *NA*(01/21/19 1:51 AM)[facility]annMOLECULAR HFJHFFAMRE3298-34-10 06:51:00Urine *NA*(01/21/19 1:51 AM)[facility] AOCNZ3484-68-33 06:51:00Negative *NA*(01/21/19 1:51 AM)[facility] BTOHC6830-41-73 06:51:00Negative *NA*(01/21/19 1:51 AM)[facility] HYENR1743-27-63 06:51:00Negative (01/21/19 1:51 AM)[facility] TCFEW9724-27-83 06:51:00Negative (01/21/19 1:51 AM)[facility] TILVB3351-77-00 06:51:00Negative (01/21/19 1:51 AM)[facility] NFORA0699-46-16 06:51:000.2[facility]UR[facility] UREMI3503-23-57 06:51:00* Test Item Value Reference Range Interpretation Comments UA pH (test code = UA pH) 6.0 1 5.0-8.0 [facility] METYV0333-67-58 06:51:00Negative (01/21/19 1:51 AM) [facility] UXCUJ5216-26-17 06:51:00Clear (01/21/19 1:51 AM) [facility] UPNOG2839-18-71 06:51:00* Test Item Value Reference Range Interpretation Comments UA Spec Grav (test code = UA Spec Grav) 1.010 1 [facility]total urine qtktvl0332-24-42 09:23:00* Test Item Value Reference Range Interpretation Comments microalbumin/total urine volume (test code = 21291-6) 46.8 mg/L [facility], random, srkwn6623-52-13 09:23:00* Test Item Value Reference Range Interpretation Comments creatinine, random, urine (test code = 5167) 132.7 mg/dL [facility] cholesterol, qxgpy9017-76-52 09:23:00* Test Item Value Reference Range Interpretation Comments LDL cholesterol, serum (test code = 2089-1) 86 mg/dL 0-99 [facility]dwellvery low density wtyymceqmwia0326-88-74 09:23:00* Test Item Value Reference Range Interpretation Comments very low density lipoproteins (test code = 2548) 27 mg/dL 5-40 [facility]HDL cholesterol, opjbo2417-99-67 09:23:00* Test Item Value Reference Range Interpretation Comments HDL cholesterol, serum (test code = 2085-9) 35 mg/dL >39 L [facility], serum, wjoglsn0947-08-32 09:23:00* Test Item Value Reference Range Interpretation Comments triglyceride, serum, fasting (test code = 2571-8) 136 mg/dL 0-14 9 [facility]dwellcholesterol, uifxv7713-65-97 09:23:00* Test Item Value Reference Range Interpretation Comments cholesterol, serum (test code = 2093-3) 148 mg/dL 100-199 [facility] aminotransferase (SGPT), kgcie1736-27-66 09:23:00 * Test Item Value Reference Range Interpretation Comments alanine aminotransferase (SGPT), serum (test code = 40) 42 1/L 0-44 [facility]dwellaspartate aminotransferase (SGOT), hpviw0789-26-08 09:23:00* Test Item Value Reference Range Interpretation Comments aspartate aminotransferase (SGOT), serum (test code = 39) 24 1/L 0-40 [facility]dwellalkaline phosphatase, swkvi4404-88-27 09:23:00* Test Item Value Reference Range Interpretation Comments alkaline phosphatase, serum (test code = 3) 76 1/L 39-117 [facility] Healthbilirubin, serum, jjvhx5719-31-43 09:23:00* Test Item Value Reference Range Interpretation Comments bilirubin, serum, total (test code = 43) 0.5 mg/dL 0.0-1.2 [facility] Healthalbumin/globulin ratio, zczla9391-05-64 09:23:00* Test Item Value Reference Range Interpretation Comments albumin/globulin ratio, serum (test code = 146) 1.6 1.2-2. 2 [facility] Healthglobulin, uuaor3027-06-43 09:23:00* Test Item Value Reference Range Interpretation Comments globulin, serum (test code = 3059) 2.7 1.5-4.5 [facility] Healthalbumin, ikkil5415-00-60 09:23:00* Test Item Value Reference Range Interpretation Comments albumin, serum (test code = 2) 4.3 g/dL 3.5-5.5 [facility] Healthprotein, total, [id number] 09:23:00* Test Item Value Reference Range Interpretation Comments protein, total, serum (test code = 36) 7.0 g/dL 6.0-8.5 [facility] [id number] 09:23:00* Test Item Value Reference Range Interpretation Comments calcium, serum (test code = 11) 9.3 mg/dL 8.7-10.2 [facility] venous [id number] 09:23:00* Test Item Value Reference Range Interpretation Comments carbon dioxide, venous blood (test code = 15) 25 mmol/L 18-29 [facility], [id number] 09:23:00* Test Item Value Reference Range Interpretation Comments chloride, serum (test code = 13) 100 mmol/L 96-106 [facility], [id number] 09:23:00* Test Item Value Reference Range Interpretation Comments potassium, serum (test code = 35) 3.8 mmol/L 3.5-5.2 [facility], [id number] 09:23:00* Test Item Value Reference Range Interpretation Comments sodium, serum (test code = 159) 141 mmol/L 134-144 [facility] nitrogen/creatinine ratio, [id number] 09:23:00 * Test Item Value Reference Range Interpretation Comments urea nitrogen/creatinine ratio, serum (test code = 2462) 11 9-20 [facility] HealtheGFR if [id number] 09:23:00* Test Item Value Reference Range Interpretation Comments eGFR if (test code = 019549) 123 mL/min/((173/100) .m2) >59 [facility]dwellEstimated Glomerular Filtration Rate (calc)2017-09-27 09:23:00* Test Item Value Reference Range Interpretation Comments Estimated Glomerular Filtration Rate (calc) (test code = 23632) 107 mL/min/((173/100).m2) >59 [id number] 09:23:00* Test Item Value Reference Range Interpretation Comments creatinine, serum (test code = 18) 0.97 mg/dL 0.76-1.27 [facility], [id number] 09:23:00* Test Item Value Reference Range Interpretation Comments urea nitrogen, blood (test code = 9) 11 mg/dL 6-20 [facility], [id number] 09:23:00* Test Item Value Reference Range Interpretation Comments blood glucose, random (test code = 8) 92 mg/dL 65-99 [facility] glucose, [id number] 08:14:39* Test Item Value Reference Range Interpretation Comments blood glucose, fasting (test code = 7) 109 mg/dL [facility] [id number] 16:31:00* Test Item Value Reference Range Interpretation Comments Neisseria gonorrhoeae DNA probe (test code = 87613-9) Negative Negative [facility] [id number] 16:31:00* Test Item Value Reference Range Interpretation Comments chlamydia DNA probe (test code = 80493-4) Negative Negative [facility], blood, as % of total [id number] 09:42:15* Test Item Value Reference Range Interpretation Comments hemoglobin A1C, blood, as % of total hemoglobin (test code = 4548-4 ) 14+ [facility], [id number] 09:42:15* Test Item Value Reference Range Interpretation Comments blood glucose, random (test code = 8) 265 mg/dL [facility]
--- OUTSIDE RECORDS SUMMARY | 2020-01-31 01:19 | XMS REPORT | Summary of Care ---
Author Author [facility] Organization [facility] Address Unknown Phone Unavailable Encounter LENI Britt(JOVANNA) [id number] Date(s): 11/26/19 - 11/29/19 [facility] [address] [place] [address]- Discharge Disposition: Home or Self Care Attending Physician: Jasmeet Rocha MD Admitting Physician: David Garcia DO Vital Signs 1 2 3 Most recent to oldest [Reference Range]: 185.42 cm (11/26/19 6:12 AM) 185.42 cm (11/26/19 1:20 AM) Height 195.085 kg (11/28/19 5:18 AM) Current Weight 98.2 DegF (11/29/19 11:20 AM) 97.6 DegF (11/29/19 8:00 AM) 98.4 DegF (11/29/19 4:09 AM) Temperature Oral [96.4-99.1 DegF] 146/97 mmHg *HI* (11/29/19 11:20 AM) 144/85 mmHg *HI* (11/29/19 8:00 AM) 114/71 mmHg (11/29/19 4:09 AM) Blood Pressure [90-140/60-90 mmHg] 18 BRMIN (11/29/19 11:20 AM) 18 BRMIN (11/29/19 8:00 AM) 16 BRMIN (11/29/19 7:19 AM) Respiratory Rate [14-20 BRMIN] 76 bpm (11/29/19 11:20 AM) 81 bpm (11/29/19 8:00 AM) 92 bpm (11/29/19 4:09 AM) Peripheral Pulse Rate [60-100 bpm] 191.392 kg (11/26/19 6:12 AM) 191.182 kg (11/26/19 1:20 AM) Weight 55.67 m2 (11/26/19 6:12 AM) 55.61 m2 (11/26/19 1:20 AM) Body Mass Index Problem List No data available for this section Allergies, Adverse Reactions, Alerts No Known Allergies Medications acetaminophen 650 mg, 2 tab, Route: PO, Drug form: TAB, Q6H, Dosing Weight 191.182, kg, PRN, S tart date: 11/26/19 3:47:00 CDT, Duration: 30 day, Stop date: 12/26/19 3:46:00 C DT, Temp > 99.5 F, 0 Notes: Do not exceed 4 gm/day. (Same as: Tylenol) Start Date: 11/26/19 Stop Date: 11/29/19 Status: Discontinued acetaminophen-codeine 300 mg-30 mg oral tablet 1 - 2 tab, PO, Q6H, PRN Pain, X 7 day, # 40 tab, 0 Refill(s) Start Date: 11/28/19 Stop Date: 12/05/19 Status: Ordered ANES acetaminophen 1,000 mg, 2 tab, Route: PO, Drug form: TAB, ONCE, Dosing Weight 191.392, kg, PRN Pain Score 1-3, Start date: 11/28/19 12:08:00 CDT, 0 Notes: Max acetaminophen 4000 mg/day (4 gm/day). (Same as: Tylenol Extra Streng th) Start Date: 11/28/19 Stop Date: 11/28/19 Status: Discontinued ANES flumazenil 0.2 mg, 2 mL, Route: IVP, Drug form: INJ, PRN, Dosing Weight 191.392, kg, PRN Be nzodiazepine Reversal, Initial dose, Start date: 11/28/19 12:08:00 CDT, Duration : 6 hr, Stop date: 11/28/19 18:07:00 CDT, 0 Notes: (Same as: Romazicon) Start Date: 11/28/19 Stop Date: 11/28/19 Status: Discontinued ANES hydrALAZINE 10 mg, 0.5 mL, Route: IVP, Drug form: INJ, Q20Min, Dosing Weight 191.392, kg, GA N Elevated BP, Start date: 11/28/19 12:08:00 CDT, Duration: 2 doses or times, St op date: 11/28/19 18:07:00 CDT, 0 Notes: (Same as: Apresoline)Push over 5 minutes Start Date: 11/28/19 Stop Date: 11/28/19 Status: Completed ANES HYDROmorphone 0.5 mg, 0.5 mL, Route: IVP, Drug form: INJ, Q5Min, Dosing Weight 191.392, kg, GA N Pain Score 7-10, Start date: 11/28/19 12:08:00 CDT, Duration: 4 doses or times , Stop date: 11/28/19 18:07:00 CDT, 0 Notes: Same as: Dilaudid Start Date: 11/28/19 Stop Date: 11/28/19 Status: Discontinued ANES labetalol 10 mg, 2 mL, Route: IVP, Drug form: INJ, Q5Min, Dosing Weight 191.392, kg, PRN E levated BP, Start date: 11/28/19 12:08:00 CDT, Duration: 5 doses or times, Stop date: 11/28/19 18:07:00 CDT, 0 Notes: (Same as: Normodyne, Trandate)Push over 2 minutes Give bolus over 2-3 mi nutes. Start Date: 11/28/19 Stop Date: 11/28/19 Status: Discontinued ANES morphine Sulfate 2 mg, 1 mL, Route: IVP, Drug form: INJ, Q5Min, Dosing Weight 191.392, kg, PRN Pa in Score 4-6, Start date: 11/28/19 12:08:00 CDT, Duration: 5 doses or times, Sto p date: 11/28/19 18:07:00 CDT, 0 Notes: (Same as:MORPhine Sulfate) Start Date: 11/28/19 Stop Date: 11/28/19 Status: Discontinued ANES naloxone 0.4 mg, 1 mL, Route: IVP, Drug form: INJ, Q2MIN, Dosing Weight 191.392, kg, PRN Narcotic Reversal, Start date: 11/28/19 12:08:00 CDT, Duration: 8 doses or times , Stop date: 11/28/19 18:07:00 CDT, 0 Notes: Same as Narcan Start Date: 11/28/19 Stop Date: 11/28/19 Status: Discontinued ANES ondansetron 4 mg, 2 mL, Route: IVP, Drug form: INJ, ONCE, Dosing Weight 191.392, kg, PRN Matt sea & Vomiting, Start date: 11/28/19 12:08:00 CDT, 0 Notes: (Same as: Zofran) MEDICATION WASTE Product Size: 4 mgProduct Was [place]: ___ mg Start Date: 11/28/19 Stop Date: 11/28/19 Status: Discontinued ANES oxyCODONE 5 mg immediate release tablet 5 mg, 1 tab, Route: PO, Drug form: TAB, Q4H, Dosing Weight 191.392, kg, PRN Pain Score 4-6, Start date: 11/28/19 12:08:00 CDT, Duration: 6 hr, Stop date: 18:07:00 CDT, 0 Notes: (Same as: Roxicodone) Start Date: 11/28/19 Stop Date: 11/28/19 Status: Discontinued calcium gluconate 2 gm, 100 mL, Route: IVPB, Drug form: SOLN, PRN, Dosing Weight 191.182, kg, PRN Abnormal Lab Result, For NON-ICU Patients Only., Start date: 11/26/19 3:47:00 CD T, Duration: 30 day, Stop date: 12/26/19 3:46:00 CDT, 0 Notes: Contains: calcium gluconate 20mg/mL NaCl 0.67% 100mL WASTE: F/P - Sink; E - Municipal Trash Bin Start Date: 11/26/19 Stop Date: 11/29/19 Status: Discontinued calcium gluconate + Sodium Chloride 0.9% IV 150 mL 3 gm, 30 mL, Route: IVPB, PRN, Dosing Weight 191.182, kg, PRN Abnormal Lab Resul t, For NON-ICU Patients Only., Start date: 11/26/19 3:47:00 CDT, Duration: 30 da y, Stop date: 12/26/19 3:46:00 CDT, 0 Notes: WASTE: F/P - Sink; E - Municipal Trash Bin Start Date: 11/26/19 Stop Date: 11/29/19 Status: Discontinued cefOXitin 2 gm, Route: IVP, Drug form: INJ, ONCALL, Dosing Weight 191.392, kg, Start date: 11/27/19 13:00:00 CDT, Duration: 1 doses or times, ABX Indication: Surgical Pro phylaxis, 0 Notes: (Same As: Mefoxin) Start Date: 11/27/19 Stop Date: 11/28/19 Status: Completed cefOXitin (ANES) Route: IV, Drug form: INJ, ONCE, Stop date: 11/28/19 13:21:00 CDT Start Date: 11/28/19 Stop Date: 11/28/19 Status: Completed Chloraseptic 1.4% spray 1 spray, Route: TOP, Daily, Drug form: SPRY, PRN Sore Throat, Start date: 10:36:00 CDT, Duration: 30 day, Stop date: 12/27/19 10:35:00 CDT, 0 Notes: Chloraseptic [place](Same as: Chloraseptic, Sore Throat [place])WASTE: F/P - Black; E - [employer] Trash Bin Start Date: 11/27/19 Stop Date: 11/29/19 Status: Discontinued Colace 100 mg oral capsule 100 mg, 1 cap, Route: PO, Drug form: CAP, BID, Dosing Weight 191.182, kg, PRN Co nstipation, Start date: 11/26/19 3:47:00 CDT, Duration: 30 day, Stop date: 12/25 3:46:00 CDT, 0 Notes: (Same as: Colace) (Do Not Crush) Start Date: 11/26/19 Stop Date: 11/29/19 Status: Discontinued dexamethasone (ANES) Route: IV, Drug form: INJ, ONCE, Stop date: 11/28/19 13:21:00 CDT Start Date: 11/28/19 Stop Date: 11/28/19 Status: Completed Dextrose 50% Syringe (D50W) 12.5 gm, 25 mL, Route: IVP, Drug Form: INJ, Dosing Weight 191.182, kg, PRN, PRN Blood Glucose Results, Start date: 11/26/19 3:47:00 CDT, Duration: 30 day, Stop date: 12/26/19 3:46:00 CDT, 0 Start Date: 11/26/19 Stop Date: 11/26/19 Status: Discontinued Dextrose 50% Syringe (D50W) 25 gm, 50 mL, Route: IVP, Drug Form: INJ, Dosing Weight 191.182, kg, PRN, PRN Bl ood Glucose Results, Start date: 11/26/19 3:47:00 CDT, Duration: 30 day, Stop da te: 12/26/19 3:46:00 CDT, 0 Start Date: 11/26/19 Stop Date: 11/26/19 Status: Discontinued Dextrose 50% Syringe (D50W) 12.5 gm, 25 mL, Route: IVP, Drug Form: INJ, Dosing Weight 191.392, kg, PRN, PRN Blood Glucose Results, Start date: 11/26/19 7:53:00 CDT, Duration: 30 day, Stop date: 12/26/19 7:52:00 CDT, 0 Start Date: 11/26/19 Stop Date: 11/29/19 Status: Discontinued Dextrose 50% Syringe (D50W) 25 gm, 50 mL, Route: IVP, Drug Form: INJ, Dosing Weight 191.392, kg, PRN, PRN Bl ood Glucose Results, Start date: 11/26/19 7:53:00 CDT, Duration: 30 day, Stop da te: 12/26/19 7:52:00 CDT, 0 Start Date: 11/26/19 Stop Date: 11/29/19 Status: Discontinued enoxaparin 40 mg, 0.4 mL, Route: SUB-Q, Drug form: INJ, [id number], Dosing Weight 191.182, kg , Consider for obese patients, Start date: 11/26/19 9:00:00 CDT, Duration: 30 da y, Stop date: 12/25/19 21:00:00 CDT, 0 Notes: (Same as: Lovenox) Start Date: 11/26/19 Stop Date: 11/29/19 Status: Discontinued ePHEDrine (ANES) Route: IV, Drug form: INJ, ONCE, Stop date: 11/28/19 13:26:00 CDT Start Date: 11/28/19 Stop Date: 11/28/19 Status: Completed fentaNYL (ANES) Route: IV, Drug form: INJ, ONCE, Stop date: 11/28/19 13:21:00 CDT Start Date: 11/28/19 Stop Date: 11/28/19 Status: Completed GI cocktail WITHOUT lidocaine (aluminum hydroxide/magnesium hydroxide/simethicon e) 30 mL, Route: PO, Dosing Weight 191.182, kg, ONCE, STAT, Start date: 11/26/19 1: 56:00 CDT, Stop date: 11/26/19 1:56:00 CDT Start Date: 11/26/19 Stop Date: 11/26/19 Status: Completed glipiZIDE 10 mg oral tablet 10 mg = 1 tab, PO, Before Breakfast, # 30 tab, 0 Refill(s) Start Date: 11/26/19 Status: Ordered glucagon 1 mg, Route: IM, Drug form: PDR/INJ, PRN, Dosing Weight 191.182, kg, PRN Blood G lucose Results, Start date: 11/26/19 3:47:00 CDT, Duration: 30 day, Stop date: 0 12/26/19 3:46:00 CDT, 0 Start Date: 11/26/19 Stop Date: 11/26/19 Status: Discontinued glucagon 1 mg, Route: IM, Drug form: PDR/INJ, PRN, Dosing Weight 191.392, kg, PRN Blood G lucose Results, Start date: 11/26/19 7:53:00 CDT, Duration: 30 day, Stop date: 0 12/26/19 7:52:00 CDT, 0 Start Date: 11/26/19 Stop Date: 11/29/19 Status: Discontinued glycopyrrolate (ANES) Route: IV, Drug form: INJ, ONCE, Stop date: 11/28/19 13:26:00 CDT Start Date: 11/28/19 Stop Date: 11/28/19 Status: Completed hydrALAZINE 25 mg oral tablet 25 mg, 1 tab, Route: PO, Drug form: TAB, QID, Dosing Weight 191.182, kg, PRN, St art date: 11/26/19 3:47:00 CDT, Duration: 30 day, Stop date: 12/26/19 3:46:00 CD T, SBP >/= 160, 0 Notes: (Same as: Apresoline) May interfere w/enteral feedings Take With Food. Start Date: 11/26/19 Stop Date: 11/29/19 Status: Discontinued hydrochlorothiazide 12.5 mg, PO, Daily, 0 Refill(s) Start Date: 11/26/19 Status: Ordered hydrochlorothiazide 12.5 mg, 1 tab, Route: PO, Drug form: TAB, Daily, Dosing Weight 191.392, kg, Sta rt date: 11/26/19 14:00:00 CDT, Duration: 30 day, Stop date: 12/26/19 9:00:00 CD T, 0 Notes: (Same as: Hydrodiuril). Give with food. Start Date: 11/26/19 Stop Date: 11/29/19 Status: Discontinued insulin lispro 2 unit, 0.02 mL, Route: SUB-Q, Drug form: SOLN, TID-Before Meals, Dosing Weight 191.392, kg, PRN Blood Glucose Results, Start date: 11/26/19 7:53:00 CDT, Durati on: 30 day, Stop date: 12/26/19 7:52:00 CDT, 0 Notes: (Same as: Humalog) Roll in palms of hands gently; Do not shake vigorously . WASTE: F/P - Black; E - Municipal Trash BinStable for 28 days at room tempera ture.Expires in days from Date Start Date: 11/26/19 Stop Date: 11/29/19 Status: Discontinued insulin lispro 4 unit, 0.04 mL, Route: SUB-Q, Drug form: SOLN, TID-Before Meals, Dosing Weight 191.392, kg, PRN Blood Glucose Results, Start date: 11/26/19 7:53:00 CDT, Durati on: 30 day, Stop date: 12/26/19 7:52:00 CDT, 0 Notes: (Same as: Humalog) Roll in palms of hands gently; Do not shake vigorously . WASTE: F/P - Black; E - Municipal Trash BinStable for 28 days at room tempera ture.Expires in days from Date Start Date: 11/26/19 Stop Date: 11/29/19 Status: Discontinued insulin lispro 6 unit, 0.06 mL, Route: SUB-Q, Drug form: SOLN, TID-Before Meals, Dosing Weight 191.392, kg, PRN Blood Glucose Results, Start date: 11/26/19 7:53:00 CDT, Durati on: 30 day, Stop date: 12/26/19 7:52:00 CDT, 0 Notes: (Same as: Humalog) Roll in palms of hands gently; Do not shake vigorously . WASTE: F/P - Black; E - Municipal Trash BinStable [facility] from Date Start Date: 11/26/19 Stop Date: 11/29/19 Status: Discontinued insulin lispro 8 unit, 0.08 mL, Route: SUB-Q, Drug form: SOLN, TID-Before Meals, Dosing Weight 191.392, kg, PRN Blood Glucose Results, Start date: 11/26/19 7:53:00 CDT, Durati on: 30 day, Stop date: 12/26/19 7:52:00 CDT, 0 Notes: (Same as: Humalog) Roll in palms of hands gently; Do not shake vigorously . WASTE: F/P - Black; E - Municipal Trash BinStable for 28 days at room [facility].Expires in days from Date Start Date: 11/26/19 Stop Date: 11/29/19 Status: Discontinued insulin lispro 10 unit, 0.1 mL, Route: SUB-Q, Drug form: SOLN, TID-Before Meals, Dosing Weight 191.392, kg, PRN Blood Glucose Results, Start date: 11/26/19 7:53:00 CDT, Durati on: 30 day, Stop date: 12/26/19 7:52:00 CDT, 0 Notes: (Same as: Humalog) Roll in palms of hands gently; Do not shake vigorously . WASTE: F/P - Black; E - Municipal Trash BinStable for 28 days at room tempera ture.Expires in days from Date Start Date: 11/26/19 Stop Date: 11/29/19 Status: Discontinued insulin lispro 1 unit, 0.01 mL, Route: SUB-Q, Drug form: SOLN, Bedtime, Dosing Weight 191.392, kg, PRN Blood Glucose Results, Start date: 11/26/19 7:53:00 CDT, Duration: 30 da y, Stop date: 12/26/19 7:52:00 CDT, 0 Notes: (Same as: Humalog) Roll in palms of hands gently; Do not shake vigorously . WASTE: F/P - Black; E - Municipal Trash BinStable for 28 days at room tempera ture.Expires in days from Date Start Date: 11/26/19 Stop Date: 11/29/19 Status: Discontinued insulin lispro 2 unit, 0.02 mL, Route: SUB-Q, Drug form: SOLN, Bedtime, Dosing Weight 191.392, kg, PRN Blood Glucose Results, Start date: 11/26/19 7:53:00 CDT, Duration: 30 da y, Stop date: 12/26/19 7:52:00 CDT, 0 Notes: (Same as: Humalog) Roll in palms of hands gently; Do not shake vigorously . WASTE: F/P - Black; E - Municipal Trash BinStable for 28 days at room tempera ture.Expires in days from Date Start Date: 11/26/19 Stop Date: 11/29/19 Status: Discontinued insulin lispro 3 unit, 0.03 mL, Route: SUB-Q, Drug form: SOLN, Bedtime, Dosing Weight 191.392, kg, PRN Blood Glucose Results, Start date: 11/26/19 7:53:00 CDT, Duration: 30 da y, Stop date: 12/26/19 7:52:00 CDT, 0 Notes: (Same as: Humalog) Roll in palms of hands gently; Do not shake vigorously . WASTE: F/P - Black; E - Municipal Trash BinStable for 28 days at [facility].Expires in days from Date Start Date: 11/26/19 Stop Date: 11/29/19 Status: Discontinued insulin lispro 4 unit, 0.04 mL, Route: SUB-Q, Drug form: SOLN, Bedtime, Dosing Weight 191.392, kg, PRN Blood Glucose Results, Start date: 11/26/19 7:53:00 CDT, Duration: 30 da y, Stop date: 12/26/19 7:52:00 CDT, 0 Notes: (Same as: Humalog) Roll in palms of hands gently; Do not shake vigorously . WASTE: F/P - Black; E - Municipal Trash BinStable for 28 days at [facility].Expires in days from Date Start Date: 11/26/19 Stop Date: 11/29/19 Status: Discontinued Lactated Ringers Injection IV (ANES) 1000 mL Route: IV, Total Volume: 1,000, Start date: 11/28/19 12:26:00 CDT, Stop date: 13:26:00 CDT Start Date: 11/28/19 Stop Date: 11/28/19 Status: Completed Lactated Ringers Injection IV 1,000 mL 1,000 mL, Rate: 75 ml/hr, Infuse over: 13.3 hr, Route: IV, Dosing Weight 191.392 kg, Total Volume: 1,000, Start date: 11/28/19 12:08:00 CDT, Duration: 12 hr, St op date: 11/29/19 0:07:00 CDT, 3.19, m2, 0 Start Date: 11/28/19 Stop Date: 11/29/19 Status: Completed Lactated Ringers IV 1,000 mL 1,000 mL, Rate: 150 ml/hr, Infuse over: 6.7 hr, Route: IV, Dosing Weight 191.182 kg, Total Volume: 1,000, Priority: STAT, Start date: 11/26/19 3:51:00 CDT, Dura tion: 30 day, Stop date: 12/26/19 3:50:00 CDT, 3.19, m2, 0 Start Date: 11/26/19 Stop Date: 11/29/19 Status: Discontinued lidocaine (ANES) Route: IV, Drug form: INJ, ONCE, Stop date: 11/28/19 13:21:00 CDT Start Date: 11/28/19 Stop Date: 11/28/19 Status: Completed Lidocaine Viscous 2% mucous membrane solution 10 mL, Route: PO, ONCE, Start date: 11/26/19 1:56:00 CDT, Stop date: 11/26/19 1: 56:00 CDT Start Date: 11/26/19 Stop Date: 11/26/19 Status: Completed lisinopril 20 mg, 1 tab, Route: PO, Drug form: TAB, Daily, Dosing Weight 191.392, kg, Prior ity: NOW, Start date: 11/26/19 11:11:00 CDT, Duration: 30 day, Stop date: 9:00:00 CDT, 0 Notes: (Same as: Prinivil, Zestril) Start Date: 11/26/19 Stop Date: 11/29/19 Status: Discontinued lisinopril 40 mg oral tablet 40 mg = 1 tab, PO, Daily, # 30 tab, 0 Refill(s) Start Date: 11/26/19 Status: Ordered magnesium oxide 800 mg, 2 tab, Route: PO, Drug form: TAB, PRN, Dosing Weight 191.182, kg, PRN Ab normal Lab Result, For NON-ICU Patients Only., Start date: 11/26/19 3:47:00 CDT, Duration: 30 day, Stop date: 12/26/19 3:46:00 CDT, 0 Notes: (Same as: Mag-Ox 400)Magnesium oxide [id number] elemental magnesiumDose= ____mg magnesium oxide (___mg elemental magnesium) Start Date: 11/26/19 Stop Date: 11/29/19 Status: Discontinued magnesium sulfate 1 gm, 100 mL, Route: IVPB, Drug form: INJ, PRN, Dosing Weight 191.182, kg, PRN A bnormal Lab Result, For NON-ICU Patients Only., Start date: 11/26/19 3:47:00 CDT , Duration: 30 day, Stop date: 12/26/19 3:46:00 CDT, 0 Notes: WASTE: F/P - Sink; E - Municipal Trash Bin Start Date: 11/26/19 Stop Date: 11/29/19 Status: Discontinued magnesium sulfate 2 gm, 50 mL, Route: IVPB, Drug form: INJ, PRN, Dosing Weight 191.182, kg, PRN Ab normal Lab Result, For NON-ICU Patients Only., Start date: 11/26/19 3:47:00 CDT, Duration: 30 day, Stop date: 12/26/19 3:46:00 CDT, 0 Notes: WASTE: F/P - Sink; E - Municipal Trash Bin Start Date: 11/26/19 Stop Date: 11/29/19 Status: Discontinued metFORMIN 500 mg oral tablet, extended release 500 mg = 1 tab, PO, Daily, with evening meal, # 30 tab, 1 Refill(s) Start Date: 11/26/19 Status: Ordered midazolam (ANES) Route: IV, Drug form: SOLN, ONCE, Stop date: 11/28/19 13:01:00 CDT Start Date: 11/28/19 Stop Date: 11/28/19 Status: Completed morphine Sulfate 4 mg, Route: IVP, ONCE, Dosing Weight 191.182, kg, Priority: STAT, Start date: 0 11/26/19 1:56:00 CDT, Stop date: 11/26/19 1:56:00 CDT Start Date: 11/26/19 Stop Date: 11/26/19 Status: Completed morphine Sulfate 2 mg, 1 mL, Route: IVP, Drug form: INJ, Q3H, Dosing Weight 191.182, kg, PRN Pain Score 7-10, Start date: 11/26/19 3:47:00 CDT, Duration: 30 day, Stop date: 08/15 3:46:00 CDT, 0 Notes: (Same as:MORPhine Sulfate) Start Date: 11/26/19 Stop Date: 11/29/19 Status: Discontinued [place] 10/325 oral tablet 1 tab, Route: PO, Drug Form: TAB, Dosing Weight 191.182, kg, Q6H, PRN Pain Score 4-6, STAT, Start date: 11/26/19 3:36:00 CDT, Duration: 30 day, Stop date: 12/25 3:35:00 CDT, 0 Notes: Do not exceed 4gm/day of acetaminophen. (Same as: Gheens 325/10) Start Date: 11/26/19 Stop Date: 11/29/19 Status: Discontinued ondansetron (ANES) Route: IV, Drug form: INJ, ONCE, Stop date: 11/28/19 13:42:00 CDT Start Date: 11/28/19 Stop Date: 11/28/19 Status: Completed Ozempic (1 mg dose) 2 mg/1.5 mL subcutaneous solution 2 mg, SUB-Q, qWeek, 0 Refill(s) Start Date: 11/26/19 Status: Ordered potassium chloride 20 mEq, 1 tab, Route: PO, Drug form: ERTAB, PRN, Dosing Weight 191.182, kg, PRN Abnormal Lab Result, For NON-ICU Patients Only, Start date: 11/26/19 3:47:00 CDT , Duration: 30 day, Stop date: 12/26/19 3:46:00 CDT, 0 Notes: (Same as: K-Dur )"Do Not Crush" Give with food and full glass of water For patients unable to swallow tablet, dissolve in one half glass of water. Allo w about 2 minutes for the tablets to disintegrate. Stir before giving to prepare slurry and administer.Please exclude Patients with feeding tube less than 14 [place] ([place], J-tube etc) and pediatric and patients. Start Date: 11/26/19 Stop Date: 11/29/19 Status: Discontinued potassium chloride 20 mEq, 1 pkt, Route: NJ, Drug form: PDR/REC, PRN, Dosing Weight 191.182, kg, GA N Abnormal Lab Result, For NON-ICU Patients Only, Start date: 11/26/19 3:47:00 C DT, Duration: 30 day, Stop date: 12/26/19 3:46:00 CDT, 0 Notes: (Same as: K-Raissa) With food and full glass of water Start Date: 11/26/19 Stop Date: 11/29/19 Status: Discontinued potassium chloride 10 mEq, 100 mL, Route: IVPB, Drug form: INJ, PRN, Dosing Weight 191.182, kg, PRN Abnormal Lab Result, For NON-ICU Patients Only, Start date: 11/26/19 3:47:00 CD T, Duration: 30 day, Stop date: 12/26/19 3:46:00 CDT, 0 Notes: Infuse at a rate of 10 mEq/hr.(Same as: KCL) Start Date: 11/26/19 Stop Date: 11/29/19 Status: Discontinued potassium phosphate + Sodium Chloride 0.9% IV 250 mL 15 mmol, 5 mL, Route: IVPB, PRN, Dosing Weight 191.182, kg, PRN Abnormal Lab Res ult, For NON-ICU Patients Only., Start date: 11/26/19 3:47:00 CDT, Duration: 30 day, Stop date: 12/26/19 3:46:00 CDT, 0 Notes: (Same as: K Phosphate.)Do not infuse phosphorous concurrently in the same line as TPN or IVF that contains calcium. For double lumen central lines, phosp horous may be infused in a separate lumen from TPN. 1 mMol phoshate has 1.47 mE q potassium Infuse over 4 hours Start Date: 11/26/19 Stop Date: 11/29/19 Status: Discontinued potassium phosphate + Sodium Chloride 0.9% IV 250 mL 30 mmol, 10 mL, Route: IVPB, PRN, Dosing Weight 191.182, kg, PRN Abnormal Lab Re sult, For NON-ICU Patients Only., Start date: 11/26/19 3:47:00 CDT, Duration: 30 day, Stop date: 12/26/19 3:46:00 CDT, 0 Notes: (Same as: K Phosphate.)Do not infuse phosphorous concurrently in the same line as TPN or IVF that contains calcium. For double lumen central lines, phosp horous may be infused in a separate lumen from TPN. 1 mMol phoshate has 1.47 mE q potassium Infuse over 4 hours Start Date: 11/26/19 Stop Date: 11/29/19 Status: Discontinued potassium phosphate-sodium phosphate 250 mg-280 mg-160 mg oral powder for recons titution 2 pkt, Route: PO, Drug Form: PDR/REC, Dosing Weight 191.182, kg, PRN, PRN Abnorm al Lab Result, For NON-ICU Patients Only, Start date: 11/26/19 3:47:00 CDT, Dura tion: 30 day, Stop date: 12/26/19 3:46:00 CDT, 0 Notes: (Same as: Phos-NaK) Each 1.5 gm pkt has 250mg phosphorous. Mix w/2.5oz w ater and stir. 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 (Same as: Protonix) Start Date: 11/26/19 Stop Date: 11/29/19 Status: Discontinued rocuronium (ANES) Route: IV, Drug form: INJ, ONCE, Stop date: 11/28/19 13:21:00 CDT Start Date: 11/28/19 Stop Date: 11/28/19 Status: Completed Saline Flush 0.9% 10 mL, Route: IVP, Drug Form: INJ, Dosing Weight 193.273, kg, PRN, PRN Line Flus h, Start date: 11/26/19 1:19:00 CDT, Duration: 30 day, Stop date: 12/26/19 1:18: 00 CDT, 0 Notes: (Same as: BD Posiflush) Start Date: 11/26/19 Stop Date: 11/29/19 Status: Discontinued sodium phosphate + Sodium Chloride 0.9% IV 250 mL 15 mmol, 5 mL, Route: IVPB, PRN, Dosing Weight 191.182, kg, PRN Abnormal Lab Res ult, For NON-ICU Patients Only., Start date: 11/26/19 3:47:00 CDT, Duration: 30 day, Stop date: 12/26/19 3:46:00 CDT, 0 Notes: Infuse over 4 hour. Do not infuse phosphorous concurrently in the same li ne as TPN or IVF that contains calcium. For double lumen central lines, phosphor ous may be infused in a separate lumen from TPN. Start Date: 11/26/19 Stop Date: 11/29/19 Status: Discontinued sodium phosphate + Sodium Chloride 0.9% IV 250 mL 30 mmol, 10 mL, Route: IVPB, PRN, Dosing Weight 191.182, kg, PRN Abnormal Lab Re sult, For NON-ICU Patients Only., Start date: 11/26/19 3:47:00 CDT, Duration: 30 day, Stop date: 12/26/19 3:46:00 CDT, 0 Notes: Infuse over 4 hour. Do not infuse phosphorous concurrently in the same li ne as TPN or IVF that contains calcium. For double lumen central lines, phosphor ous may be infused in a separate lumen from TPN. Start Date: 11/26/19 Stop Date: 11/29/19 Status: Discontinued sugammadex (ANES) Route: IV, Drug form: SOLN, ONCE, Stop date: 11/28/19 13:54:00 CDT Start Date: 11/28/19 Stop Date: 11/28/19 Status: Completed tramadol 50 mg oral tablet 50 mg, 1 tab, Route: PO, Drug form: TAB, Q4H, Dosing Weight 191.182, kg, PRN Brenden n Score 1-3, Start date: 11/26/19 3:47:00 CDT, Duration: 30 day, Stop date: 08/15 3:46:00 CDT, 0 Notes: Not to exceed 400mg/day. (Same As: Ultram) Start Date: 11/26/19 Stop Date: 11/29/19 Status: Discontinued Zofran 4 mg, Route: IVP, Drug form: INJ, ONCE, Dosing Weight 191.182, kg, Priority: STA T, Start date: 11/26/19 1:57:00 CDT, Stop date: 11/26/19 1:57:00 CDT Start Date: 11/26/19 Stop Date: 11/26/19 Status: Completed Zofran 4 mg, 2 mL, Route: IV, Drug form: INJ, Q4H, Dosing Weight 191.182, kg, PRN Nause a, Start date: 11/26/19 3:47:00 CDT, Duration: 30 day, Stop date: 12/26/19 3:46: 00 CDT, 0 Notes: (Same as: Zofran) MEDICATION WASTE Product Size: 4 mgProduct Was t[place]on: ___ mg Start Date: 11/26/19 Stop Date: 11/29/19 Status: Discontinued Zosyn + Sodium Chloride 0.9% IV 100 mL 3.375 gm, Route: IVPB, ABXQ8H, Dosing Weight 191.182, kg, Start date: 11/26/19 4 :00:00 CDT, Duration: 10 day, Stop date: 12/05/19 15:00:00 CDT, ABX Indication: Intra-abdominal Infection, 0 Notes: (Same as: Zosyn)Dosing based on Piperacillin component MEDICATION WA GERBER Product Size: 3375 mgProduct Wasted: ___ mg Start Date: 11/26/19 Stop Date: 11/28/19 Status: Discontinued Results 1 2 3 Most recent to oldest [Reference Range]: 8.1 K/CMM (11/29/19 4:16 AM) 5.4 K/CMM (11/27/19 3:07 AM) 5.7 K/CMM (11/26/19 1:40 AM) Neutrophils # [1.5-8.1 K/CMM] 1.2 K/CMM (11/29/19 4:16 AM) 1.6 K/CMM (11/27/19 3:07 AM) 1.7 K/CMM (11/26/19 1:40 AM) Lymphocytes # [1.0-5.5 K/CMM] 0.6 K/CMM (11/29/19 4:16 AM) 0.5 K/CMM (11/27/19 3:07 AM) 0.6 K/CMM (11/26/19 1:40 AM) Monocytes # [0.0-0.8 K/CMM] 0.1 K/CMM (11/27/19 3:07 AM) 0.1 K/CMM (11/26/19 1:40 AM) Eosinophils # [0.0-0.5 K/CMM] 95 mL/min/1.73m2 1 *NA* (11/29/19 4:16 AM) 108 mL/min/1.73m2 2 *NA* (11/27/19 3:07 AM) 105 mL/min/1.73m2 3 *NA* (11/26/19 1:40 AM) eGFR 0.7 (11/29/19 4:16 AM) 0.7 (11/27/19 3:07 AM) 0.8 (11/26/19 1:40 AM) A/G Ratio [0.7-1.6] 3.5 g/dL (11/29/19 4:16 AM) 3.1 g/dL *LOW* (11/27/19 3:07 AM) 3.6 g/dL (11/26/19 1:40 AM) Albumin Lvl [3.5-5.0 g/dL] 79 unit/L (11/29/19 4:16 AM) 68 unit/L (11/27/19 3:07 AM) 99 unit/L (11/26/19 1:40 AM) Alk Phos [39-136 unit/L] 46 unit/L (11/29/19 4:16 AM) 31 unit/L (11/27/19 3:07 AM) 35 unit/L (11/26/19 1:40 AM) ALT [0-65 unit/L] 10.9 mEq/L (11/29/19 4:16 AM) 8.0 mEq/L *LOW* (11/27/19 3:07 AM) 7.3 mEq/L *LOW* (11/26/19 1:40 AM) AGAP [10.0-20.0 mEq/L] 25 unit/L (11/29/19 4:16 AM) 15 unit/L (11/27/19 3:07 AM) 14 unit/L (11/26/19 1:40 AM) AST [0-37 unit/L] 14 (11/29/19 4:16 AM) 10 (11/27/19 3:07 AM) 10 (11/26/19 1:40 AM) B/C Ratio [6-25] 0.3 % (11/29/19 4:16 AM) 0.2 % (11/27/19 3:07 AM) 0.4 % (11/26/19 1:40 AM) Basophils [0.0-1.0 %] 17 mg/dL (11/29/19 4:16 AM) 11 mg/dL (11/27/19 3:07 AM) 11 mg/dL (11/26/19 1:40 AM) BUN [7-22 mg/dL] 9.4 mg/dL (11/29/19 4:16 AM) 8.8 mg/dL (11/27/19 3:07 AM) 9.3 mg/dL (11/26/19 1:40 AM) Calcium Lvl [8.5-10.5 mg/dL] 4.44 (11/27/19 3:07 AM) CHD Risk [4.00-7.30] 142 mg/dL (11/27/19 3:07 AM) Chol [<=199 mg/dL] 100 mEq/L (11/29/19 4:16 AM) 101 mEq/L (11/27/19 3:07 AM) 102 mEq/L (11/26/19 1:40 AM) Chloride Lvl [95-109 mEq/L] 27 mEq/L (11/29/19 4:16 AM) 31 mEq/L (11/27/19 3:07 AM) 30 mEq/L (11/26/19 1:40 AM) CO2 [24-32 mEq/L] 1.19 mg/dL (11/29/19 4:16 AM) 1.07 mg/dL (11/27/19 3:07 AM) 1.09 mg/dL (11/26/19 1:40 AM) Creatinine Lvl [0.50-1.40 mg/dL] 0.1 % (11/29/19 4:16 AM) 1.5 % (11/27/19 3:07 AM) 0.9 % (11/26/19 1:40 AM) Eosinophils [0.0-4.0 %] 4.8 g/dL *HI* (11/29/19 4:16 AM) 4.3 g/dL *HI* (11/27/19 3:07 AM) 4.7 g/dL *HI* (11/26/19 1:40 AM) Globulin [2.7-4.2 g/dL] 273 mg/dL *HI* (11/29/19 4:16 AM) 212 mg/dL *HI* (11/27/19 3:07 AM) 299 mg/dL *HI* (11/26/19 1:40 AM) Glucose Lvl [70-99 mg/dL] 41.3 % *LOW* (11/29/19 4:16 AM) 39.6 % *LOW* (11/27/19 3:07 AM) 41.8 % *LOW* (11/26/19 1:40 AM) Hct [42.0-54.0 %] 32 mg/dL *LOW* (11/27/19 3:07 AM) HDL [>=61 mg/dL] 13.6 g/dL *LOW* (11/29/19 4:16 AM) 13.1 g/dL *LOW* (11/27/19 3:07 AM) 13.8 g/dL *LOW* (11/26/19 1:40 AM) Hgb [14.0-18.0 g/dL] 10.0 % *HI* (11/27/19 3:07 AM) Hgb A1C [<=5.6 %] 3.9 mEq/L (11/29/19 4:16 AM) 4.0 mEq/L (11/27/19 3:07 AM) 4.3 mEq/L (11/26/19 1:40 AM) Potassium Lvl [3.5-5.1 mEq/L] 67 mg/dL (11/27/19 3:07 AM) LDL (Calculated) [<=99 mg/dL] 2642 unit/L *HI* (11/28/19 2:47 AM) 3766 unit/L *HI* (11/27/19 3:07 AM) 15451 unit/L *HI* (11/26/19 1:40 AM) Lipase Lvl [73-393 unit/L] 11.8 % *LOW* (11/29/19 4:16 AM) 20.7 % (11/27/19 3:07 AM) 21.1 % (11/26/19 1:40 AM) Lymphocytes [20.0-40.0 %] 25.6 pg *LOW* (11/29/19 4:16 AM) 25.9 pg *LOW* (11/27/19 3:07 AM) 25.8 pg *LOW* (11/26/19 1:40 AM) MCH [27.0-31.0 pg] 33.0 g/dL (11/29/19 4:16 AM) 32.9 g/dL (11/27/19 3:07 AM) 33.1 g/dL (11/26/19 1:40 AM) MCHC [32.0-36.0 g/dL] 77.7 fL *LOW* (11/29/19 4:16 AM) 78.7 fL *LOW* (11/27/19 3:07 AM) 78.0 fL *LOW* (11/26/19 1:40 AM) MCV [80.0-94.0 fL] 2.1 mg/dL (11/27/19 3:07 AM) Magnesium Lvl [1.8-2.4 mg/dL] 1+ *ABN* (11/29/19 4:16 AM) 1+ *ABN* (11/27/19 3:07 AM) 1+ *ABN* (11/26/19 1:40 AM) Microcyte [None Seen] 6.4 % (11/29/19 4:16 AM) 6.1 % (11/27/19 3:07 AM) 6.8 % (11/26/19 1:40 AM) Monocytes [2.0-12.0 %] 8.9 fL (11/29/19 4:16 AM) 9.0 fL (11/27/19 3:07 AM) 8.6 fL (11/26/19 1:40 AM) MPV [7.4-10.4 fL] 134 mEq/L *LOW* (11/29/19 4:16 AM) 136 mEq/L (11/27/19 3:07 AM) 135 mEq/L (11/26/19 1:40 AM) Sodium Lvl [135-145 mEq/L] 4.1 mg/dL (11/27/19 3:07 AM) Phosphorus [2.5-4.5 mg/dL] 190 K/CMM (11/29/19 4:16 AM) 142 K/CMM (11/27/19 3:07 AM) 145 K/CMM (11/26/19 1:40 AM) Platelet [133-450 K/CMM] 81.4 % *HI* (11/29/19 4:16 AM) 71.5 % (11/27/19 3:07 AM) 70.8 % (11/26/19 1:40 AM) Segs [45.0-75.0 %] 8.3 g/dL (11/29/19 4:16 AM) 7.4 g/dL (11/27/19 3:07 AM) 8.3 g/dL (11/26/19 1:40 AM) Total Protein [6.4-8.4 g/dL] 5.32 M/CMM (11/29/19 4:16 AM) 5.04 M/CMM (11/27/19 3:07 AM) 5.36 M/CMM (11/26/19 1:40 AM) RBC [4.70-6.10 M/CMM] 14.6 % *HI* (11/29/19 4:16 AM) 14.5 % (11/27/19 3:07 AM) 14.4 % (11/26/19 1:40 AM) RDW [11.5-14.5 %] 0.5 mg/dL (11/29/19 4:16 AM) 0.7 mg/dL (11/27/19 3:07 AM) 0.5 mg/dL (11/26/19 1:40 AM) Bili Total [0.2-1.3 mg/dL] 214 mg/dL *HI* (11/27/19 3:07 AM) Trig [<=149 mg/dL] <0.02 ng/mL (11/26/19 1:40 AM) Troponin-I [0.00-0.40 ng/mL] 10.0 K/CMM (11/29/19 4:16 AM) 7.6 K/CMM (11/27/19 3:07 AM) 8.1 K/CMM (11/26/19 1:40 AM) WBC [3.7-10.4 K/CMM] 43 *NA* (11/27/19 3:07 AM) VLDL 1Result Comment: The eGFR is calculated using the [...] from the National Kidney Disease Education Program ( NKDEP) which additionally recommends that when the eGFR is used in patients with extremes of body mass index for purposes of drug dosing, the eGFR should be mul tiplied by the estimated BMI. 2Result Comment: The eGFR is calculated using the [...] from the National Kidney Disease Education Program ( NKDEP) which additionally recommends that when the eGFR is used in patients with extremes of body mass index for purposes of drug dosing, the eGFR should be mul tiplied by the estimated BMI. 3Result Comment: The eGFR is calculated using the [...] from the National Kidney Disease Education Program ( NKDEP) which additionally recommends that when the eGFR is used in patients with extremes of body mass index for purposes of drug dosing, the eGFR should be mul tiplied by the estimated BMI. Immunizations No data available for this section Procedures Procedure Date Related Diagnosis Body Site Status Debridement of wound of skin Completed Social History Social History Type Response Smoking Status Never smoker; Exposure to T obacco Smoke None; Cigarette Smoking Last 365 Days No; Reg Smoking Cessation Counseli ng No entered on: 11/26/19 Assessment and Plan Extracted from: Title: Clinical Document Author: Brien Petersen MD Aries e: 11/29/19 SUBJECTIVE doing fine. pain controlled. no nausea OBJECTIVE abdomen soft. ASSESSMENT & EXAM s/p lap omero PLAN & TREATMENT dc home f/u 2 wks Ready for Discharge (Yes/No)?_ I/O Intake OutputBalance 11/28/2019 7a-3p 1726.00 1510.00 216.00 3p-11p 785.00 1400.00 -615.00 11p-7a 1200.00 500.00 700.00 Totals 3711.00 3410.00 301.00 11/27/2019 7a-3p 650.00 800.00 -150.00 3p-11p 121.67 0.00 121.67 11p-7a 318.33 0.00 318.33 Totals 1090.00 800.00 290.00 24hr Labs 11/28 0730 POC Performing LocatioSee Note Glucose GWQ061 H 11/28 0416 Sodium Kry870 L Potassium Lvl3.9 Chloride Keq090 CO227 AGAP10.9 Glucose Jqz526 H Creatinine Lvl1.19 BUN17 B/C Ratio14 Total Protein8.3 Albumin Lvl3.5 Globulin4.8 H A/G Ratio0.7 Calcium Lvl9.4 ALT46 AST25 Alk Phos79 Bili Total0.5 eGFR95 WBC10.0 RBC5.32 Hgb13.6 L Hct41.3 L MCV77.7 L MCH25.6 L MCHC33.0 RDW14.6 H Apdldqaq261 MPV8.9 Segs81.4 H Monocytes6.4 Wdxwerepvuq99.8 L Eosinophils0.1 Basophils0.3 Neutrophils #8.1 Lymphocytes #1.2 Monocytes #0.6 Microcyte1+ 11/27 2051 POC Performing LocatioSee Note Glucose CLI922 H 11/27 1637 POC Performing LocatioSee Note Glucose PHT070 H 11/27 1350 POC Performing LocatioSee Note Glucose KBW983 H 11/27 1117 POC Performing LocatioSee Note Glucose UUV062 H Extracted from: Title: Clinical Document Author: Brien Petersen MD Aries e: 11/28/19 PREOPERATIVE DIAGNOSIS: Gallstone pancreatitis POSTOPERATIVE DIAGNOSIS: same PROCEDURE PERFORMED: Laparoscopic cholecystectomy. SURGEON: Dr. Petersen. OPERATIONAL RISK MANAGER: stanton ANESTHESIA: General with local. ESTIMATED BLOOD [...] to the PACU in stable condition. Extracted from: Title: General Admission H&P * Author: Seymour Clark [...]
--- OUTSIDE RECORDS SUMMARY | 2020-01-31 01:19 | XMS REPORT | Summary of Care ---
Author Author [facility] Organization [facility] Address Unknown Phone Unavailable Encounter LENI Britt(JOVANNA) [id number] Date(s): 08/16/19 - 08/17/19 [facility] [address], [place], [place] [address]- [phone] Encounter Diagnosis Candidiasis of penis (Discharge Diagnosis) - 08/16/19 Bilateral lower extremity edema (Discharge Diagnosis) - 08/16/19 Discharge Disposition: Home or Self Care Attending Physician: Bari Gutierrez MD Vital Signs Most recent to 1 2 oldest [Reference Range]: Height 185.42 cm (08/16/19 10:29 PM) Temperature Oral 98.0 DegF 97 DegF [96.4-99.1 DegF] (08/17/19 12:15 AM) (08/16/19 10:29 PM) Blood Pressure 163/99 mmHg 155/97 mmHg [90-140/60-90 mmHg] *HI* *HI* (08/17/19 12:15 AM) (08/16/19 10:29 PM) Respiratory Rate 20 BRMIN 18 BRMIN [14-20 BRMIN] (08/17/19 12:15 AM) (08/16/19 10:29 PM) Peripheral Pulse 81 bpm 87 bpm Rate [60-100 bpm] (08/17/19 12:15 AM) (08/16/19 10:29 PM) Weight 192.528 kg (08/16/19 10:29 PM) Body Mass Index 56 m2 (08/16/19 10:29 PM) Problem List No data available for this section Allergies, Adverse Reactions, Alerts No Known Allergies Medications clotrimazole topical 1% cream 1 appl, TOP, BID, PRN Affected Area(s), apply to penile fungal infection, X 14 d ay, # 30 gm, 0 Refill(s) Start Date: 08/16/19 Stop Date: 08/30/19 Status: Ordered Diflucan 150 mg oral tablet 150 mg = 1 tab, PO, ONCE, # 1 tab, 0 Refill(s) Start Date: 08/16/19 Status: Ordered Results Most recent to 1 oldest [Reference Range]: UA Bacteria Rare *NA* (08/16/19 11:32 PM) UA Bili [Negative] Negative *NA* (08/16/19 11:32 PM) UA Blood [Negative] Negative (08/16/19 11:32 PM) UA Color [Yellow] Yellow *NA* (08/16/19 11:32 PM) UA Glucose [Negative >=1000 mg/dL mg/dL] *ABN* (08/16/19 11:32 PM) UA Ketones [Negative Negative mg/dL mg/dL] *NA* (08/16/19 11:32 PM) UA Leuk Est Negative [Negative] (08/16/19 11:32 PM) UA Nitrite Negative [Negative] (08/16/19 11:32 PM) UA pH [5.0-8.0] 6.0 (08/16/19 11:32 PM) UA Protein [Negative Negative mg/dL mg/dL] (08/16/19 11:32 PM) UA RBC [0-2 /HPF] 0-2 /HPF (08/16/19 11:32 PM) UA Spec Grav 1.015 [<=1.030] (08/16/19 11:32 PM) UA Sq Epi [Few /LPF] Rare /LPF (08/16/19 11:32 PM) UA Turbidity [Clear] Clear (08/16/19 11:32 PM) UA Urobilinogen 0.2 EU/dL [0.1-1.0 EU/dL] (08/16/19 11:32 PM) UA WBC [None Seen 3-5 /HPF /HPF] (08/16/19 11:32 PM) Immunizations No data available for this section Procedures No data available for this section Social History Social History Type Response Smoking Status Never smoker; Exposure to T obacco Smoke None; Cigarette Smoking Last 365 Days No; Reg Smoking Cessation Counseli ng No entered on: 08/17/19 Assessment and Plan No data available for this section
--- OUTSIDE RECORDS SUMMARY | 2020-01-31 01:19 | XMS REPORT ---
Author Author Austin Pate Organization Unknown Address Unknown Phone Unavailable PROBLEMS Condition Status Date Provider Notes HTN active Llye Khalienedina BMI 50.0-59.9 active Lyel Obandoalid Hx of abscess active Spencer Barrios Pelvic absc ess MORBID OBESITY active Spencer Barrios Balanitis active Spencer Barrios Diabetes mellitus type II active Spencer Barrios ENCOUNTERS Date Type Provider Location Encounter Diagn osis - Ambulatory Encounter Lien Harris [facility] UNK - Ambulatory Encounter Betsey Mcneill [facility] Ly Morales [facility] UNK - Ambulatory Encounter Elvia Cooper [facility] UNK - Ambulatory Encounter Elvia Cooper [facility] UNK - Ambulatory Encounter Betsey Charito [facility] UNK - Ambulatory Encounter María Kebede [facility] UNK - Ambulatory Encounter Betsey Mcneill [facility] UNK - Ambulatory Encounter Betsey Mcneill Ignati us [facility] UNK - Ambulatory Encounter Juan Manuel Mcneill Isael Basilio Kebede [facility] UNK - Ambulatory Encounter Malena stevenson [facility] UNK - Ambulatory Encounter Betsey Griffith [facility] UNK - Ambulatory Encounter Betsey Kebede [facility] UNK - Ambulatory Encounter Fax Status Karlos [facility] UNK - Ambulatory Encounter Alexx [facility] UNK - Ambulatory Encounter Lyle Khalid Sanna aib Khalid [facility] UNK - Ambulatory Encounter Lyle Khalid Sanna aib Khalid [facility] UNK - Ambulatory Encounter Jaylene Cooper Lyle Khalid Lyle Khalid [facility] UNK - Ambulatory Encounter Elvia Frazier [facility] UNK - Ambulatory Encounter Lyle Khalid Sanna aib Khalid [facility] UNK - Ambulatory Encounter Ashley Melvin [facility] UNK - Ambulatory Encounter Lyle Khalid Lyle Khalid [facility] UNK - Ambulatory Encounter Lyle Khalid Sanna aib Khalid [facility] UNK - Ambulatory Encounter Lyle Khalid Sanna aib Khalid [facility] UNK - Ambulatory Encounter Jaylene Cooper Lyle Khalid Lyle Khalid [facility] BMI 50.0-59.9HTN - Ambulatory Encounter Spencer Barrios [facility] UNK - Ambulatory Encounter Cherrie Jaren [facility] UNK - [facility] Spencer Barrios [facility] RendonCherrievicky [facility] - Ambulatory Encounter Spencer Barrios [facility] - Ambulatory Encounter Jenelle Coffey Kyle [facility] Diabetes mellitus type IIBalanitisMORBID OBESITYHx of abscess VITAL SIGNS No Information Available ALLERGIES Allergy Name Onset Date Reaction Criticality Status HYDROCHLOROTHIAZIDE Leg Cramps Low Criticality activ e REASON FOR REFERRAL No Information Available RESULTS Date Observation Value Provider Reference Range Interpretati on Location hepatitis C antibody, serum <0.1 [facility] 0.0-0.9 " HIV-CMIA (Chemiluminescent Microparticle Immuno Assay) Non Reactive [facility] Non Reactive " microalbumin/creatinine ratio, urine 48.9 MG/G CREAT [facility] 0.0-30.0 High " microalbumin/total urine volume 63.3 mg/L [employer] Not Est ab. " creatinine, random, urine 129.4 mg/dL [facility] Not Estab. " LDL cholesterol, serum 28 mg/dL [facility] 0-99 " very low density lipoproteins 72 mg/dL [facility] 5-40 High " HDL cholesterol, serum 30 mg/dL [facility] >39 Low " triglyceride, serum, fasting 359 mg/dL [facility] 0-149 High " cholesterol, serum 130 mg/dL [facility] 100-199 " alanine aminotransferase (SGPT), serum 46 1/L [facility] 0-44 High " aspartate aminotransferase (SGOT), serum 25 1/L [facility] 0-40 " alkaline phosphatase, serum 107 1/L [facility] 39-117 " bilirubin, serum, total 0.4 mg/dL [facility] 0.0-1.2 " albumin/globulin ratio, serum 1.5 [facility] 1.2-2.2 " globulin, serum 3.0 [employer] 1.5-4.5 " albumin, serum 4.4 g/dL [facility] 3.5-5.5 " protein, total, serum 7.4 g/dL [facility] 6.0-8.5 " calcium, serum 9.6 mg/dL [facility] 8.7-10.2 " carbon dioxide, venous blood 23 mmol/L [employer] 20-29 " chloride, serum 98 mmol/L [facility] 96-106 " potassium, serum 4.5 mmol/L [facility] 3.5-5.2 " sodium, serum 138 mmol/L [facility] 134-144 " urea nitrogen/creatinine ratio, serum 10 [facility] 9 -20 " eGFR if 81 mL/min/((173/100).m2) [facility] >59 " Estimated Glomerular Filtration Rate (calc) 70 m L/min/((173/100).m2) [employer] >59 " creatinine, serum 1.35 mg/dL [facility] 0.76-1.27 High " urea nitrogen, blood 14 mg/dL [facility] 6-20 " blood glucose, random 307 mg/dL [facility] 65-99 High hemoglobin A1C, blood, as % of total hemoglobin 9.4 % Betsey Kirkland " blood glucose, random 313 mg/dL Nasrin Grewal microalbumin/total urine volume 46.8 mg/L [employer] Not Es tab. " creatinine, random, urine 132.7 mg/dL [employer] Not Estab. " LDL cholesterol, serum 86 mg/dL [employer] 0-99 " very low density lipoproteins 27 mg/dL [employer] 5-40 " HDL cholesterol, serum 35 mg/dL [facility] >39 Low " triglyceride, serum, fasting 136 mg/dL [facility] 0-149 " cholesterol, serum 148 mg/dL [facility] 100-199 " alanine aminotransferase (SGPT), serum 42 1/L [facility] 0-44 " aspartate aminotransferase (SGOT), serum 24 1/L [facility] 0-40 " alkaline phosphatase, serum 76 1/L [facility] 39-117 " bilirubin, serum, total 0.5 mg/dL [employer] 0.0-1.2 " albumin/globulin ratio, serum 1.6 [employer] 1.2-2.2 " globulin, serum 2.7 [employer] 1.5-4.5 " albumin, serum 4.3 g/dL [employer] 3.5-5.5 " protein, total, serum 7.0 g/dL [employer] 6.0-8.5 " calcium, serum 9.3 mg/dL [employer] 8.7-10.2 " carbon dioxide, venous blood 25 mmol/L [employer] 18-29 " chloride, serum 100 mmol/L [employer] 96-106 " potassium, serum 3.8 mmol/L [employer] 3.5-5.2 " sodium, serum 141 mmol/L [facility] 134-144 " urea nitrogen/creatinine ratio, serum 11 [employer] 9 -20 " eGFR if 123 mL/min/((173/100).m2) [facility] >59 " Estimated Glomerular Filtration Rate (calc) 107 mL/min/((173/100).m2) [employer] >59 " creatinine, serum 0.97 mg/dL [employer] 0.76-1.27 " urea nitrogen, blood 11 mg/dL [facility] 6-20 " blood glucose, random 92 mg/dL [employer] 65-99 blood glucose, fasting 109 mg/dL Elvia Cooper Neisseria gonorrhoeae DNA probe Negative [employer] Negati ve " chlamydia DNA probe Negative [employer] Negative hemoglobin A1C, blood, as % of total hemoglobin 14+ Lizethcruzito Serrano " blood glucose, random 265 mg/dL Lizeth Serrano HISTORY OF IMMUNIZATIONS No Information Available HISTORY OF MEDICATION USE Medication Instructions Dates Provider Comments ATORVASTATIN CALCIUM 10 MG ORAL TABLET 1 TAB By Mouth Q HS 01/29 Betsey Griffithus NORVASC 10 MG ORAL TABLET 1 by mouth every day Lyle Talbert LISINOPRIL 20 MG ORAL TABLET 1 by mouth every day Donavon Talbert NYSTATIN [id number] UNIT/GM EXTERNAL CREAM Apply to affect ed area 4 times a day until 48 hours after it completely resolves - Lyle Talbert AZITHROMYCIN 500 MG ORAL TABLET 2 tabs by mouth single dose - Lyle Khalid JANUVIA 50 MG ORAL TABLET 1 By Mouth once a day - 201 01/27/18 Lyle Khalid GLIPIZIDE 10 MG ORAL TABLET Take 1 tab By Mouth once a daily 201 01/26/07 Lyle Khalid METFORMIN HCL 1000 MG ORAL TABLET 1 by mouth twice a day Spencer Barrios SOCIAL HISTORY Date Observation Value Provider time of call 01/28/2019 11:47 AM Malena Paredes drug use, illicit Never Nasrin Uri " alcohol use Never Nasrin Uri " social history reviewed E&M reviewed today Steve Grewal " sexual orientation Heterosexual Nasrin Uri " assessment of health literacy ([facility], 3C10) Adequate Nasrin Uri " passive cigarette smoke exposure No Nasrin Uri " smoking status never smoker Nasrin Uri " Exercise Program Referral T Nasrin Uri " Weight Management Counseling Provided T Nasrin Uri " Nutrition intervention T Nasrin Ja ck social history reviewed E&M reviewed today April a Cooper " sexual orientation Heterosexual Elvia Cooper " passive cigarette smoke exposure No Elvia Cooper " smoking status never smoker Elvia Schofieldvez " assessment of health literacy ([facility], 3C10) Adequate Elvia Cooper " Exercise Program Referral T Elvia Schofieldvez " Weight Management Counseling Provided T Elvia Schofieldvez " Nutrition intervention T Elvia Gal vez " sexual orientation Heterosexual Elvia Cooper " passive cigarette smoke exposure No Elvia Cooper " smoking status never smoker Elvia Cooper " assessment of health literacy ([facility], 3C10) Adequate Elvia Cooper " Exercise Program Referral T Elvia Cooper " Weight Management Counseling Provided T Elvia Cooper " Nutrition intervention T Elvia Schofield vejeannine " social history reviewed E&M reviewed today April Cooper Exercise Program Referral T Spencer ye " Weight Management Counseling Provided T Spencer Barrios " Nutrition intervention T Spencer aparicio " drug use, illicit Never Lizeth Serrano " alcohol use Never Lizeth Serrano " patient considered to be homeless No Lizeth Serrano " sexual orientation Heterosexual Lizeth Porra s " passive cigarette smoke exposure No Lizeth Serrano " smoking status never smoker Lizeth Serrano FUNCTIONAL STATUS No Information Available MENTAL STATUS Date Observation Value Provider mental status examination: orientation E &M oriented to time, place, and person Betsey Kirkland " assessment of mood and affect E&M no depression, anxiety, or agitation Betsey Kirkland " Generalized Anxiety Disorder Questionnaire - Que stion 2 0 Nasrinestefania Grewal " Generalized Anxiety Disorder Questionnaire - Que stion 1 0 Nasrin Grewal Generalized Anxiety Disorder Questionnaire - Que stion 2 0 Elvia Valenciaz " Generalized Anxiety Disorder Questionnaire - Que stion 1 0 Elvia Cooper assessment of judgment and insight E&M intact Lyle Gali " mental status examination: orientation E &M oriented to time, place, and person Lyle Khalid " assessment of mood and affect E&M no depression, anxiety, or agitation Lyle Khalid " Generalized Anxiety Disorder Questionnaire - Que stion 2 0 Elvia Cooper " Generalized Anxiety Disorder Questionnaire - Que stion 1 0 Elvia Cooper assessment of judgment and insight E&M intact Spencer Barrios " mental status examination: orientation E &M oriented to time, place, and person Spencer Barrios " assessment of mood and affect E&M no depression, anxiety, or agitation Spencer Barrios " Generalized Anxiety Disorder Questionnaire - Que stion 2 0 Lizeth Serrano " Generalized Anxiety Disorder Questionnaire - Que stion 1 0 Lizeth Serrano MEDICAL EQUIPMENT No Information Available FAMILY HISTORY No Information Available INSURANCE PROVIDERS Payer name Policy type / Coverage type Covered part y ID Sliding Fee - Cat 1 [employer] [id number] Sliding Fee - Cat 1 [employer] insurance [employer] [id number] ADVANCE DIRECTIVES No Information Available TREATMENT PLAN Date Name HCV Antibody HIV 1/2 ANTIGEN/ANTIBODY, FO URTH GENERATION W/RFL Microalb/Creat Ratio, Randm Ur Lipid Panel Comp. Metabolic Panel (14) Renin Activity and Aldostero ne Comp. Metabolic Panel (14) Microalb/Creat Ratio, Randm Ur Lipid Panel Chlamydia/GC Amplification Est Patient Detailed - 41550 Est Patient Detailed - 40585 Vision Free Glucometer- LFL [employer] Analyst Est Patient Exp Problem - 99 213 Est Patient Exp Problem - 99 213 Prescription Assistance HEMOGLOBIN A1C - In House Glucose Stick New Patient Detailed - 69873 HISTORY OF PROCEDURES Procedure Date Procedure Name Provider Procedure Notes Status HEMOGLOBIN A1C - In House Jenelle Valdez completed Glucose Stick Jenelle Valdez completed GOALS No Information Available HEALTH CONCERNS No Information Available
--- NOTE | 2020-01-31 01:32 | Diagnostic Imaging Report ---
X-ray left wrist 3 views HISTORY: Pain. [place] pop while lifting. Snuff box tenderness. COMPARISON: None available. FINDINGS: Bones: No acute displaced fracture. Osseous alignment is within normal limits. Joints: The joint spaces are well-maintained. Soft tissues: The soft tissues appear unremarkable. IMPRESSION: No acute fracture identified. Given history of snuff box tenderness, consider immobilization and repeat x-rays in 7-10 days to reassess. Signed by: Tato Gandhi MD on 01/31/2020 1:29 AM
[2020-01-31] MEDS ORDERED: NIFEDIPINE 10 MG CAP PO STA (02:22)
[2020-01-31 03:01] VITALS: BP 185/112
== END 2020-01-31 03:14 | disposition home or self-care (01) ==
LOC: ER 01:00
DX: M25.532 Pain in left wrist (principal); S63.502A Unspecified sprain of left wrist, initial encounter; Y99.0 Civilian activity done for income or pay; I10 Essential (primary) hypertension; E11.9 Type 2 diabetes mellitus without complications
CPT/HCPCS: 99283